=== PATIENT | female | born 1970 | race Hispanic/Latino ===

== ENCOUNTER 2023-03-20 06:33 | Observation (INO) | payer OTHER ==
--- OUTSIDE RECORDS SUMMARY | 2023-03-20 06:38 | XMS REPORT | Continuity of Care Document ---
:1970 Author Organization [facility] t Address [address] [place] [address] Care Team Providers Name Role Phone Johnson Jozef Arias Attending Clinician Unavailable FREDERICK GARCIA Attending Clinician Unavailable Vishal Lloyd Attending Clinician Unavailable Beverley Tafoya Attending Clinician Unavailable Abbe Elaine Attending Clinician Unavailable Physician, No Primary or Family Admitting Clinician Unavaila ble Payers Payer Name Policy Type Policy Number Effective Date Expiration Date S ource Problems This patient has no known problems. Allergies, Adverse Reactions, Alerts Allergy Allergy Status Severity Reaction(s) Onset Inactive Treating Comm ents Source Name Type Date Date Clinician No Known DA Active U [facility] 4- [place] [facility] 00:00: [facility] 00 are Rousseau No Known DA Active U 2020-05 [facility] 07-02 [facility] 00:00: [address] No Known DA Active U [facility] - [facility] [facility] 00:00: [address] No Known DA Active U [facility] 3-28 [facility] 00:00: [address] Medications This patient has no known medications. Procedures Procedure Date / Time Performed Performing Clinician [facility] stacy [id number] 2019-09-13 00:00:[address] [facility] [id number] 2019-09-13 00:00:[address] [facility] [id number] 2019-09-13 00:00:[address] [facility] [id number] 2019-09-13 00:00:00 HEAPA.01 [facility] Encounters Start End Encounter Admission Attending Care Care Encounter Source Date/Time Date/Time Type Type Clinicians Facility Department ID 2022-08-26 Emergency HFD HFD [id number] TIFFANY - 13:41:02 [facility] 2021-11-13 Inpatient Ornelas, [facility] [id number] [facility] 23:46:00 Jozef [id number] [facility] 2021-11-13 [facility]nel[facility] [id number] [facility] 23:01:00 Jozef 99 [facility] 2020-04-05 [facility] [id number] [facility] 16:16:00 82 [facility] 2020-04-01 [facility] [id number] [facility] 01:16:00 92 [facility] 2019-09-19 [facility] [id number] [facility] 14:29:00 05 [facility] 2019-09-09 [facility] [id number] [facility] 13:30:00 17 [facility] 2022-08-26 2022-08-26 Emergency E RADHA, [facility] [address] 13:01:00 17:48:00 MURALIELECARIANA l [facility] 2022-08-16 2022-08-16 Emergency EM Vishal Lloyd [facility] E[facility]3 [id number] [facility] 12:31:00 14:01:00 00 [facility] are Rousseau 2022-05-14 2022-05-14 Emergency EM Lottie [facility] [id number] [facility] 19:16:00 21:47:00 , Beverley [address] [facility] 2021-11-13 2021-11-14 Emergency EM Johnson, [facility] ER [id number] [facility] 23:44:00 04:32:00 Jozef 57 [facility] 2021-05-01 2021-05-01 Emergency EM Chele, [facility] ER [id number] [facility] 19:59:00 21:10:00 Mcadams 76 Corp[facility] Results Test Description Test Time Test Comments Results Result Comments Source UA MICROSCOPIC 2022-08-16 17:46:00 Test Item Value Reference Range Interpretation Comme nts UA WBC (test code = WBCU) 3-5 /HPF 0-3 A UA RBC (test code = RBCU) 0-3 /HPF 0-3 UA BACTERIA (test code = BACU) 1+ /HPF NONE SEEN A UA SQUAMOUS CELLS (test code = SQU) RARE /HPF NONE-FEW UA MUCUS (test code = MUCU) RARE /LPF NONE-FEW UA AMORPHOUS SEDIMENT (test code = AMORU) 1+ /HPF NONE SEEN URINALYSIS DIPSTICK [id number] 17:46:00 Test Item Value Reference Range Interpretation Comments UA COLOR (test code Yellow YELLOW = COLU) UA APPEARANCE (test Clear CLEAR code = APPU) UA GLUCOSE DIPSTICK NEGATIVE MG/AL NEGATIVE (test code = DGLUU) UA BILIRUBIN 1+ NEGATIVE A DIPSTICK (test code = BILU) UA KETONE DIPSTICK Trace MG/DL NEGATIVE (test code = KETU) UA SPECIFIC GRAVITY >=1.030 1.000-1.030 (test code = SGU) UA BLOOD DIPSTICK Trace-intact NEGATIVE (test code = SHERIN) UA PH DIPSTICK (test 5.5 4.5-8.5 code = BUSHRA) UA PROTEIN DIPSTICK TRACE NEGATIVE A (test code = PROU) UA UROBILINOGEN 0.2 EU/dL See_Comment [Automated DIPSTICK (test code message] The system = URO) which generated this result transmitted reference range : <=1.0. The reference range was not used to interpret this result as normal/abnormal . UA NITRITE DIPSTICK NEGATIVE NEGATIVE (test code = ZARI) UA LEUKOCYTE NEGATIVE NEGATIVE ESTERASE DIPSTICK (test code = LEUU) UA MICROSCOPIC YES NEEDED? (test code = UAMICRO) - XR CHEST 2 [id number] 13:28:00 [facility] : 1970 Sex: FPatient Name: YOSSI QUIROZ Unit No: [id number] EXAMS: CPT: [id number] XR CHEST 2 V 87312 CHEST 2 VIEWS. HISTORY: chest pain COMPARISON: none FINDINGS: The lungs are well aerated and clear. Thecardiomediastinal silhouette is normal. No pleural effusion is seen. Bony thorax is unremarkable. IMPRESSION: No acute abnormality is detected. Electronically Signed by Osvaldo Alexander MD on 3at 1328 Reported and signed by: Osvaldo Alexander MD CC: Vishal Lloyd MD Technologist: MARGOTH HUNTLEY [facility] Dt/Tm: 08/16/2022 (1328) by:[email or web address] Orig Print D/T: S: 08/16/2022 (2238) BATCH NO: N/A Name: YOSSI QUIROZ [facility] [place]: [place] [id number] [address] : 12/1970 Age: 51 Sex: [place] [address] Loc: NANCY Exam Date: 08/16/2022 Status: REG ER PH: [phone] FAX: PAGE 1 Signed ReportBNP [id number] 13:05:00 Test Item Value Reference Range Interpretation Comments BNP RAPID (test code = BNPRAP) 185 pg/mL 0.0-100.0 H HCG [id number] 13:03:00 Test Item Value Reference Range Interpretation Comments HCG POC (test NEGATIVE IU/L code = HCGPOC) Re sults of 5.0-25.0 IU/L a re indeterminate a nd do not ruleout pregnan cy. Because HCG karen ues double approxim ately every48 hours i n a normal pregnanc y, patients with l ow levels ofHCG should be resampled and r etested after 48 hours toconfirm . COMPREHENSIVE METABOLIC [id number] 13:03:00 Test Item Value Reference Range Interpretation Comments SODIUM POC (test 139 mmol/L 138-146 N code = NAP) POTASSIUM POC (test 4.2 mmol/L 3.5-4.9 N code = KP) CHLORIDE POC (test 109 mmol/L 98-109 N code = CLP) CO2 POC (test code = 26 mmol/L 24-29 N CO2P) GLUCOSE POC (test 101 MG/DL 74-106 N code = GLUP) BUN POC (test code = 12 mg/dL 8-26 N BUNP) CREATININE POC (test 1.0 mg/dL 0.6-1.3 N code = CREATP) GLOMERULAR 69 >60 The Glomerular FILTRATION RATE POC Filtrati on Rate is a (test code = GFRP) calculate d parameterbased on serum Creatinine, pat ient age and sex. GFR va luesless than 60 mL/min/ 1.73 square meters a re indicative ofCh ronic Kidney Disease. Values less than 15 mL/min/1.73squa re meters indicate Kidney failure. The calculation for GFR is based on the CK D-EPI (2020) calculat ion. This formulais race indifferent and is the recommended for daniela for GFRby the Natio nal Kidney Foundati on for Adults.The GFR will not calculate if th e sex is unknown or if thepatient's ag e is <18 years. TOTAL PROTEIN (test 7.6 g/dL 6.4-8.1 N code = PROT) ALBUMIN (test code = 3.4 g/dL 3.3-5.5 N ALB) CALCIUM (test code = 9.3 mg/dL 8.8-10.5 N CA) BILIRUBIN TOTAL 0.7 mg/dL 0.2-1.6 N (test code = BILT) SGOT/AST (test code 30 IU/L 11-38 N = AST) SGPT/ALT (test code 26 IU/L 10-47 N = ALT) ALKALINE PHOSPHATASE 119 IU/L 42-141 N (test code = ALKP) TROPONIN I [id number] 13:02:00 Test Item Value Reference Range Interpretation Comments TROPONIN I RAPID 0.01 ng/mL 0.00-0.08 N ISTAT TROP ONIN I (test code = CRITERIA0.00-0. 08 ng/mL - TROPIRAP) Negative>0.08 n g/mL - Positive The us e of serial sampling and te sting protocol is are commended practice.An sneha vated troponin level alone is often not suffi cient fordiagnosis of myocardial infarction. Matthew kellogg results obtaine d by different assay s may vary.Evaluation of the extent of myoca rdial damage based on increase of troponin would be valid only if similar methodology is used. CBC W/AUTO [id number] 12:51:00 Test Item Value Reference Range Interpretation Comments WHITE BLOOD CELL 7.8 x10 3/u 4.8-10.8 N (test code = WBC) RED BLOOD CELL (test 4.27 x10 6/uL 4.20-5.40 N code = RBC) HEMOGLOBIN (test code 12.1 g/dL 12.0-16.0 N = HGB) HEMATOCRIT (test code 38.5 % 34.0-47.0 N = HCT) MEAN CELL VOLUME 90 fL 80-99 N (test code = MCV) MEAN CELL HGB (test 28.3 pg 27.0-31.0 N code = MCH) MEAN CELL HGB 31.4 g/dL 33.0-37.0 L CONCENTRATION (test code = MCHC) RED CELL DISTRIBUTION 13.7 % 11.5-14.5 N WIDTH (test code = RDW) PLATELET COUNT (test 337 x10 3/uL 130-400 N code = PLT) MEAN PLATELET VOLUME 9.0 fL 9.4-12.4 L (test code = MPV) NEUTROPHIL % (test 48.8 % 37.0-80.0 N code = NT%) LYMPHOCYTE % (test 39.3 % 10.0-50.0 N code = LY%) MIXED % (test code = 11.9 % 0.0-11.0 H The Mix ed Cell MX%) percent and Mix ed Cell absolute numberinclude monocytes, eosinophils and basophils. NEUTROPHIL # (test 3.8 x10 3/uL 2.0-6.9 N code = NT#) LYMPHOCYTE # (test 3.1 x10 3/uL 0.9-4.1 N code = LY#) MIXED # (test code = 0.9 10e3/mm3 0.2-1.1 N MX#) - XR CHEST 1 [id number] 20:26:00 [facility] CENTERName: YOSSI HODGES : 1970 Sex: F Patient Name: YOSSI HODGES Unit No: [id number] EXAMS: CPT CODE: [id number] XR CHEST 1 V 66522 Reason: Cough Dictation location: H37. CHEST, FRONTAL VIEW HISTORY: Cough COMPARISON: Chest x-ray 04/05/20. FINDINGS: The lungs are clear without consolidation. No pleural effusion or pneumothorax. The heart size is normal. The bones are unremarkable. IMPRESSION: No evidence of acute cardiopulmonary disease. at 2026 Reported and signedby: Grady Ruiz MD CC: Beverley Tafoya MD Technologist: VAUGHN Collier Trscrpt Dt/ (2025)[email or web address].[email or web address] Orig Print D/T: S: 05/14/2022 (2028) [place] FSED NAME: YOSSI HODGES [address] PHYS: [place] [address] : 1970 AGE: 51 SEX: F LOC: D.NER PHONE #: [phone] EXAM DATE: 05/14/2022 STATUS: REG ER FAX #: RAD NO: DC Dt: PAGE 1 Signed Report COMPREHENSIVE METABOLIC [id number] 20:24:00 Test Item Value Reference Range Interpretation Comments SODIUM (test code = 138 MMOL/L 133-145 N NA) POTASSIUM (test code 3.6 MMOL/L 3.6-5.2 N = K) CHLORIDE (test code 102 MMOL/L 100-108 N = CL) CARBON DIOXIDE (test 28 MMOL/L 22-32 N code = CO2) GLUCOSE (test code = 91 MG/DL 65-99 N Results of this assay GLU) method may be f alsely depressed orele vated if patient is t aking sulfasalazine. BLOOD UREA NITROGEN 16 MG/DL 6-20 N (test code = BUN) GLOMERULAR 81 58-135 N The Glomerular FILTRATION RATE Filtration R ate is a (test code = GFR) calculated parameterbased on serum Creatinin e, patient age and sex. GFR valuesless than 60 mL/min/1.73 squ are meters are rylee cative ofChronic Kidne y Disease. Values less than 15 mL/min/1.73squa re meters indicate Kidney failure. The calculation for GFR is based on the CK D-EPI (2020) calculat ion. This formulais race indifferent and is the recommended for daniela for GFRby the N ational Kidney Foundati on for Adults.The GFR will not calculate i f the sex is unknown or if thepatient's ag e is <18 years. CREATININE (test 0.88 MG/DL 0.60-1.00 N code = CREAT) TOTAL PROTEIN (test 7.6 G/DL 6.4-8.2 N code = PROT) ALBUMIN (test code = 3.5 G/DL 3.4-5.0 N ALB) GLOBULIN (test code 4.1 G/DL 1.5-3.8 H = GLOB) ALBUMIN/GLOBULIN 0.9 1.1-2.2 L RATIO (test code = A/G) CALCIUM (test code = 9.2 MG/DL 8.7-10.5 N CA) BILIRUBIN TOTAL 0.3 MG/DL 0.0-1.0 N (test code = BILT) SGOT/AST (test code 38 Units/L 15-37 H Results of this assay = AST) method may be f alsely depressed orele vated if patient is t aking sulfasalazine. SGPT/ALT (test code 50 Units/L 30-65 N Results of this assay = ALT) method may be f alsely depressed orele vated if patient is t aking sulfasalazine. ALKALINE PHOSPHATASE 137 Units/L 50-136 H TOTAL (test code = ALKP) NT PRO-BRAIN NATRIURETIC [id number] 20:24:00 Test Item Value Reference Range Interpretation Comments NT PRO-BRAIN 610 PG/ML 0-125 H Results of this assay NATRIURETIC PEPTI (test meth od may be falsely code = PROBNP) depressed ore levated if patient is t aking high doses of B iotin. TROP-I HIGH [id number] 20:24:00 Test Item Value Reference Range Interpretation Comments TROP-I HIGH 38 ng/L < 51 Results above 51 for SENSITIVITY (test females an d 76 for males code = TROPIHS) are consiste nt with IFCC Committee recom mendations to use the 99th percentile of a normal population as a reference decision-limit. - The use of serial sampl ing and testing protoco l is a recommended pra ctive.- An elevated high sensitiveity tr oponin level alone is often not sufficient for diagnosis of myocardial infarction.- In order to distinguish acu te elevations of h igh sensitivity tro ponin from other clinical conditions, the Fourth [place] Defin ition of Myocardial Infa rction stresses clinic al assessment and demonstration o f a rise and/or fall in serial troponin result s above the upper refer ence limit.Results o f this assay method ma y be falsely depress ed orelevated if p atient is taking high dos es of Biotin. - CT HEAD/BRAIN W/O [id number] 20:24:00 [facility] : 1970 Sex: F Patient Name: YOSSI HODGES Unit No: [id number] EXAMS: CPT CODE: [id number] CT HEAD/BRAIN W/O CONT 26626Dpoqqg: Blurred vision Dictation location: H37. CT HEAD WITHOUT CONTRAST. HISTORY: Blurred vision COMPARISON: No comparison is available. TECHNIQUE: Axial CT images of the head were obtained with coronal and/or sagittal reformatted views. Automated exposure control, iterative reconstruction technique,and/or adjustment of mA and/or kV according to patient's size was utilized for radiation dose reduction. IV CONTRAST: None. FINDINGS: Left temporal craniotomy with aneurysm clipping in the region of the left MCA. Mild amount of periventricular and deep white matter hypodensities are seen, these are most commonly associated with chronic, microvascular ischemic changes. No other intracranial abnormalities such as hemorrhage, mass, mass effect, hydrocephalus, midline shift, extra-axial fluid collection or secondary signs of an acute infarct are noted. The calvarium and skull base are intact. The paran chaya sinus and mastoid air cells are clear. IMPRESSION: No evidence of acute intracranial abnormality. Left MCA aneurysm clipping. Mild chronic microvascular ischemic changes. Electronically Signedby Grady Ruiz MD on 05/14/2022 at 2023 Reported and signed by: Grady Ruiz MD CC: Beverley Tafoya MD Technologist: Dagoberto Fox, CT Trscrpt Dt/ (2023)[email or web address] Orig Print D/T: S: 05/14/2022 (2027) CTDI: DLP: [place] FSED NAME: YOSSI HODGES [id number] PHYS: [place] [address] : 1970 AGE: 51 SEX: F LOC: D.NER PHONE #: [phone] EXAM DATE: 05/14/2022 STATUS: PRE ER FAX #:RAD NO: DC Dt: PAGE 1 Signed ReportUA RFLX MICROSOPIC 2022-05-14 20:23:00 Test Item Value Reference Range Interpretation Comments UA COLOR (test code = COLU) YELLOW YELLOW UA APPEARANCE (test code = HAZY CLEAR APPU) UA GLUCOSE DIPSTICK (test NEGATIVE mg/dL NEGATIVE code = DGLUU) UA BILIRUBIN DIPSTICK (test NEGATIVE NEGATIVE code = BILU) UA KETONE DIPSTICK (test code NEGATIVE mg/dL NEGATIVE = KETU) UA SPECIFIC GRAVITY (test 1.020 1.001-1.035 N code = SGU) UA BLOOD DIPSTICK (test code 1+ NEGATIVE A = SHERIN) UA PH DIPSTICK (test code = 6.0 5.5-7.0 N BUSHRA) UA PROTEIN DIPSTICK (test NEGATIVE mg/dL NEGATIVE code = PROU) UA UROBILINOGEN DIPSTICK NORMAL mg/dL NORMAL (test code = URO) UA NITRITE DIPSTICK (test NEGATIVE NEGATIVE code = ZARI) UA LEUKOCYTE ESTERASE 500 NEGATIVE A DIPSTICK (test code = LEUU) UA COMMENT (test code = COMU) VOLUME 10-12 ML URINE SPECIMEN DESCRIPTION Clean Catch (test code = UASPEC) UA [id number] 20:23:00 Test Item Value Reference Range Interpretation Comments UA WBC (test code = WBCU) 10 - 20 #/hpf <10 A UA RBC (test code = RBCU) 5-10 #/hpf NONE SEEN A UA SQUAMOUS CELLS (test code = 0 - 20 #/lpf <100 SQU) UA CULTURE NEEDED? (test code = Criteria met UACULT) UA BACTERIA (test code = BACU) 2+ #/hpf NONE SEEN CBC W/AUTO [id number] 20:11:00 Test Item Value Reference Range Interpretation Comments WHITE BLOOD CELL (test code = 6.56 x10 3/uL 4.80-10.80 N WBC) RED BLOOD CELL (test code = 4.26 x10 6/uL 4.2-5.4 N RBC) HEMOGLOBIN (test code = HGB) 12.4 G/DL 12.0-16.0 N HEMATOCRIT (test code = HCT) 38.2 % 37-47 N MEAN CELL VOLUME (test code = 89.7 FL 81-99 N MCV) MEAN CELL HGB (test code = MCH) 29.1 PG 27-31 N MEAN CELL HGB CONCENTRATION 32.5 G/DL 33-37 L (test code = MCHC) RED CELL DISTRIBUTION WIDTH 13.0 % 11.5-14.5 N (test code = RDW) PLATELET COUNT (test code = 402 x10 3/uL 150-450 N PLT) MEAN PLATELET VOLUME (test code 9.5 FL 7.4-10.4 N = MPV) NEUTROPHIL % (test code = NT%) 44.8 % 42-86 N LYMPHOCYTE % (test code = LY%) 41.2 % 24-44 N MONOCYTE % (test code = MO%) 7.8 % 0.0-4.0 H EOSINOPHIL % (test code = EO%) 5.9 % 0.0-2.7 H BASOPHIL % (test code = BA%) 0.3 % 0.0-0.5 N NEUTROPHIL # (test code = NT#) 2.94 x10 3/uL 1.8-7.7 N LYMPHOCYTE # (test code = LY#) 2.70 x10 3/uL 1.0-4.8 N MONOCYTE # (test code = MO#) 0.51 x10 3/uL 0.0-0.8 N EOSINOPHIL # (test code = EO#) 0.39 x10 3/uL 0.0-0.5 N BASOPHIL # (test code = BA#) 0.02 x10 3/uL 0.0-0.2 N COVID 19 INHOUSE [id number] 00:11:00 Test Item Value Reference Range Interpretation Comments COVID 19 POSITIVE Negative A Results called to and read back INHOUSE AG by JAMES BALDERRAMA R N; 0011, 11/14/21, (test code = MatthewsDawn monroy Ma." The Sherry [id number]) SARS Antigen FI A does not differentiate b etweenSARS-CoV and SARS-CoV-2 " Th e Sherry SARS Antigen LESLIE emp loys immunofluoresce ncetechnology in a sandwich design that is used with Sherry todetect nucleocapsid protein from SA RS-CoV and SARS-CoV-2.This test allows for the detection o f SARS-CoV yjrKTBL-XmD-0. The test detects, but does not differentiate,b etween the two viruses. " Resu lts are for the identification of GAMJ-HnP-6nduqh ocapsid protein antigen. Antige n is generallydetect able in upper respiratory spe cimens during the acutephase of i nfection. Positive results indicat e the presenceof viral antigens, but clinical correlation wit h patienthistory and other diagn ostic information is necessary to determine infection statu s. Positive results do not rule outbacterial infection or co -infection with other viruses. Theagent detected may not be the definite cause of disease. " Nega tive results should be treat ed as presumptive " This test has not been FDA cleared or appr natasha; the testhas been authorized by FDA under an Emergency UseAu thorization (EUA) for use by labo ratories certified underthe CLIA t hat meet the requirements to perform moderate,high o r waived complexity test s. This test is authorized foru se at the Point of Care (POC), i.e ., in patient caresettings op erating under a CLIA Certificat e of Waiver,Certific ate of Compliance, or Certificate of Accreditation Use [employer] test: [id number] 18:54:00 Test Item Value Reference Range Interpretation Comments TROPONIN-I (test < 0.04 NG/ML 0.00-0.06 N - The use of serial code = TROPI) sampling and t esting protocol is a recommended pra ctice.- An elevated tro ponin level alone is often not sufficient for diagnosis of myocardial infarction.Resu lts of this assay meth od may be falsely depress ed orelevated if p atient is taking high dos es of Biotin. RECOLLECT 2ND TROP- XR CHEST 1 [id number] 17:40:00 [facility] CENTERName: YOSSI HODGES : 1970 Sex: F Patient Name: YOSSI HODGES Unit No: [id number] EXAMS: CPT CODE: [id number] XR CHEST 1 V 34553 Reason:chest pain PROCEDURE INFORMATION: Exam: XR Chest, 1 View Exam date and time: 04/05/2020 5:38 PM Age: 49 years old Clinical indication: Chest pain TECHNIQUE: Imaging protocol: XR of the chest Views: 1 view. COMPARISON: CR XR CHEST 1 V 04/01/2020 1:47 AM FINDINGS: Lungs: Clear lungs. Pleural space: No pn eumothorax. No sizeable effusion. Heart/Mediastinum: Cardiomediastinal silhouette is within normal limits. Bones/joints: No acute displaced fracture or dislocation. IMPRESSION: No acute cardiopulmonaryprocess. INTERNAL CODING PURPOSES ONLY RESULT CODE: CVR at 1740 Reported and signed by: Catalino Stewart MD CC: Farida Nogueira DO Technologist: Aminah CURRAN Trscrpt Dt/ (1739)[email or web address].[email or web address] Orig Print D/T: S: 04/05/2020 (174) [facility] NAME: YOSSI HODGES [id number] [facility] PHYS: [place] [address] : 1970 AGE: 49 SEX: F LOC: DAMIEN PHONE #: [phone] EXAM DATE: 04/05/2020 STATUS: REG ER FAX #: RAD NO: DC Dt: PAGE 1 Signed ReportBASIC METABOLIC [id number] 17:19:00 Test Item Value Reference Range Interpretation Comments SODIUM (test code = 138 MMOL/L 133-145 N NA) POTASSIUM (test code = 3.3 MMOL/L 3.6-5.2 L K) CHLORIDE (test code = 102 MMOL/L 100-108 N CL) CARBON DIOXIDE (test 27 MMOL/L 22-32 N code = CO2) GLUCOSE (test code = 180 MG/DL 65-99 H Results of this assay GLU) method may be f alsely depressed orele vated if patient is t aking sulfasalazine. BLOOD UREA NITROGEN 9 MG/DL 6-20 N (test code = BUN) GLOMERULAR FILTRATION 49 58-135 L Report ing units: RATE (test code = GFR) mL/mi n/1.73m\\S\\2 (Modified MDRD Formula) CREATININE (test code 1.18 MG/DL 0.60-1.00 H = CREAT) CALCIUM (test code = 9.5 MG/DL 8.7-10.5 N CA) RECOLLECTNT PRO-BRAIN NATRIURETIC [id number] 17:19:00 Test Item Value Reference Range Interpretation Comments NT PRO-BRAIN 60 PG/ML 0-125 N Results of this assay NATRIURETIC PEPTI (test meth od may be falsely code = PROBNP) depressed ore levated if patient is t aking high doses of B iotin. [id number] 17:19:00 Test Item Value Reference Range Interpretation Comments TROPONIN-I (test < 0.04 NG/ML 0.00-0.06 N - The use of serial code = TROPI) sampling and t esting protocol is a recommended pra ctice.- An elevated tro ponin level alone is often not sufficient for diagnosis of myocardial infarction.Resu lts of this assay meth od may be falsely depress ed orelevated if p atient is taking high dos es of Biotin. RECOLLECTD-DIMER [id number] 16:54:00 Test Item Value Reference Range Interpretation Comments D-DIMER QUANT (test 208 D-DU 0-400 N Alere Triage values code = DDIMER) presented in units of mass (ng/mL)of D-dim er, also known as D-dime r units (D-DU).* Cut-of f: 400 ng/mL Results o f the D-Dimer test sh ould always be interpretedi n conjunction wit h the patient's medic al history, clinicalpresent ation, and other findings. Clinical diagnosis shoul dnot be based on the re sults of D-Dimer alone.P atients with a distal D VT may have a normal D-Dime r result. CBC W/AUTO [id number] 16:41:00 Test Item Value Reference Range Interpretation Comments WHITE BLOOD CELL (test code = 6.94 x10 3/uL 4.80-10.80 N WBC) RED BLOOD CELL (test code = 3.78 x10 6/uL 4.2-5.4 L RBC) HEMOGLOBIN (test code = HGB) 11.4 G/DL 12.0-16.0 L HEMATOCRIT (test code = HCT) 33.2 % 37-47 L MEAN CELL VOLUME (test code = 87.8 FL 81-99 N MCV) MEAN CELL HGB (test code = MCH) 30.2 PG 27-31 N MEAN CELL HGB CONCENTRATION 34.3 G/DL 33-37 N (test code = MCHC) RED CELL DISTRIBUTION WIDTH 13.9 % 11.5-14.5 N (test code = RDW) PLATELET COUNT (test code = 311 x10 3/uL 150-450 N PLT) MEAN PLATELET VOLUME (test code 9.8 FL 7.4-10.4 N = MPV) NEUTROPHIL % (test code = NT%) 38.1 % 42-86 L LYMPHOCYTE % (test code = LY%) 45.1 % 24-44 H MONOCYTE % (test code = MO%) 12.2 % 0.0-4.0 H EOSINOPHIL % (test code = EO%) 4.2 % 0.0-2.7 H BASOPHIL % (test code = BA%) 0.4 % 0.0-0.5 N NEUTROPHIL # (test code = NT#) 2.64 x10 3/uL 1.8-7.7 N LYMPHOCYTE # (test code = LY#) 3.13 x10 3/uL 1.0-4.8 N MONOCYTE # (test code = MO#) 0.85 x10 3/uL 0.0-0.8 H EOSINOPHIL # (test code = EO#) 0.29 x10 3/uL 0.0-0.5 N BASOPHIL # (test code = BA#) 0.03 x10 3/uL 0.0-0.2 N UA RFLX MICROSCOPIC [id number] 01:58:00 Test Item Value Reference Range Interpretation Comments UA COLOR (test code = YELLOW YELLOW COLU) UA APPEARANCE (test code CLEAR CLEAR = APPU) UA GLUCOSE DIPSTICK (test NEGATIVE mg/dL NEGATIVE code = DGLUU) UA BILIRUBIN DIPSTICK NEGATIVE NEGATIVE (test code = BILU) UA KETONE DIPSTICK (test NEGATIVE mg/dL NEGATIVE code = KETU) UA SPECIFIC GRAVITY (test 1.015 1.001-1.035 N code = SGU) UA BLOOD DIPSTICK (test 1+ NEGATIVE A code = SHERIN) UA PH DIPSTICK (test code 7.0 5.5-7.0 N = BUSHRA) UA PROTEIN DIPSTICK (test NEGATIVE mg/dL NEGATIVE code = PROU) UA UROBILINOGEN DIPSTICK NORMAL mg/dL NORMAL (test code = URO) UA NITRITE DIPSTICK (test NEGATIVE NEGATIVE code = ZARI) UA LEUKOCYTE ESTERASE TRACE NEGATIVE A DIPSTICK (test code = LEUU) UA COMMENT (test code = LESS THAN 10 ML VOL COMU) URINE SPECIMEN Clean Catch DESCRIPTION (test code = UASPEC) UA WBC (test code = WBCU) < 10 #/hpf <10 UA SQUAMOUS CELLS (test 0 - 20 #/lpf <100 code = SQU) UA CULTURE NEEDED? (test Criteria not met code = UACULT) Indication for culture: Suprapubic PainURINE SOURCE: Clean CatchUA MICROSCOPIC 2020-04-01 01:58:00 Test Item Value Reference Range Interpretation Comments UA RBC (test code = RBCU) 0-2 #/hpf NONE SEEN A UA BACTERIA (test code = BACU) RARE #/hpf NONE SEEN Indication for culture: Suprapubic PainURINE SOURCE: Clean Catch- XR CHEST 1 V 2020-04-01 01:58:00 [facility] TAE FAJARDO [facility] : 1970 Sex: F Patient Name: YOSSI HODGES Unit No: [id number] EXAMS: CPT CODE: [id number] XR CHEST 1 V 15413 Reason: COUGH PROCEDURE INFORMATION: Exam: XR Chest, 1 View Exam date and time: 04/01/2020 1:49 AM Age: 49 years old Clinical indication: Cough TECHNIQUE: Imaging protocol: XR of the chest Views: 1 view. COMPARISON: CR XR CHEST 1 V 09/19/2019 3:33 PM FINDINGS: Lungs: Unremarkable. No consolidation. Pleural spac e: Unremarkable. No pleural effusion. No pneumothorax. Heart/Mediastinum: Unremarkable. No cardiomegaly. Bones/joints: Unremarkable. IMPRESSION: No acute findings. INTERNAL CODING PURPOSES ONLY RESULT CODE: CVR at 0158 Reported and signed by: Mookie Lazo MD CC: Cindy James MD Technologist: Macy Blake CT Trscrpt Dt/ (0158)VRMEAGAN.VR Orig Print D/T: S: 04/01/2020 (0158) [facility] NAME: YOSSI HODGES [id number] [facility] PHYS: [place] [address] : 1970 AGE: 49 SEX: F LOC: D.ANDERSON PHONE #: [phone] EXAM DATE: 020 STATUS: PRE ER FAX #: RAD NO: DC Dt: PAGE 1 Signed ReportUA RFLX MICROSCOPIC [id number] 01:52:00 Test Item Value Reference Range Interpretation Comments UA COLOR (test code = YELLOW YELLOW COLU) UA APPEARANCE (test code CLEAR CLEAR = APPU) UA GLUCOSE DIPSTICK (test NEGATIVE mg/dL NEGATIVE code = DGLUU) UA BILIRUBIN DIPSTICK NEGATIVE NEGATIVE (test code = BILU) UA KETONE DIPSTICK (test NEGATIVE mg/dL NEGATIVE code = KETU) UA SPECIFIC GRAVITY (test 1.015 1.001-1.035 N code = SGU) UA BLOOD DIPSTICK (test 1+ NEGATIVE A code = SHERIN) UA PH DIPSTICK (test code 7.0 5.5-7.0 N = BUSHRA) UA PROTEIN DIPSTICK (test NEGATIVE mg/dL NEGATIVE code = PROU) UA UROBILINOGEN DIPSTICK NORMAL mg/dL NORMAL (test code = URO) UA NITRITE DIPSTICK (test NEGATIVE NEGATIVE code = ZARI) UA LEUKOCYTE ESTERASE TRACE NEGATIVE A DIPSTICK (test code = LEUU) UA COMMENT (test code = LESS THAN 10 ML VOL COMU) URINE SPECIMEN Clean Catch DESCRIPTION (test code = UASPEC) UA WBC (test code = WBCU) #/hpf <10 UA SQUAMOUS CELLS (test #/lpf <100 code = SQU) UA CULTURE NEEDED? (test code = UACULT) Indication for culture: Suprapubic PainURINE SOURCE: Clean CatchUA MICROSCOPIC 2020-04-01 01:52:00 Test Item Value Reference Range Interpretation Comments UA RBC (test code = RBCU) #/hpf NONE SEEN Indication for culture: Suprapubic PainURINE SOURCE: Clean CatchUA RFLX MICROSCOPIC [id number] 01:52:00 Test Item Value Reference Range Interpretation Comments UA COLOR (test code = YELLOW YELLOW COLU) UA APPEARANCE (test code CLEAR CLEAR = APPU) UA GLUCOSE DIPSTICK (test NEGATIVE mg/dL NEGATIVE code = DGLUU) UA BILIRUBIN DIPSTICK NEGATIVE NEGATIVE (test code = BILU) UA KETONE DIPSTICK (test NEGATIVE mg/dL NEGATIVE code = KETU) UA SPECIFIC GRAVITY (test 1.015 1.001-1.035 N code = SGU) UA BLOOD DIPSTICK (test 1+ NEGATIVE A code = SHERIN) UA PH DIPSTICK (test code 7.0 5.5-7.0 N = BUSHRA) UA PROTEIN DIPSTICK (test NEGATIVE mg/dL NEGATIVE code = PROU) UA UROBILINOGEN DIPSTICK NORMAL mg/dL NORMAL (test code = URO) UA NITRITE DIPSTICK (test NEGATIVE NEGATIVE code = ZARI) UA LEUKOCYTE ESTERASE TRACE NEGATIVE A DIPSTICK (test code = LEUU) UA COMMENT (test code = LESS THAN 10 ML VOL COMU) URINE SPECIMEN Clean Catch DESCRIPTION (test code = UASPEC) UA WBC (test code = WBCU) #/hpf <10 UA SQUAMOUS CELLS (test #/lpf <100 code = SQU) UA CULTURE NEEDED? (test code = UACULT) Indication for culture: Suprapubic PainURINE SOURCE: Clean CatchUA MICROSCOPIC 2020-04-01 01:52:00 Test Item Value Reference Range Interpretation Comments UA RBC (test code = RBCU) #/hpf NONE SEEN Indication for culture: Suprapubic PainURINE SOURCE: Clean CatchUA RFLX MICROSCOPIC [id number] 16:26:00 Test Item Value Reference Range Interpretation Comments UA COLOR (test code = COLU) YELLOW YELLOW UA APPEARANCE (test code = CLEAR CLEAR APPU) UA GLUCOSE DIPSTICK (test NEGATIVE mg/dL NEGATIVE code = DGLUU) UA BILIRUBIN DIPSTICK (test NEGATIVE NEGATIVE code = BILU) UA KETONE DIPSTICK (test NEGATIVE mg/dL NEGATIVE code = KETU) UA SPECIFIC GRAVITY (test 1.005 1.001-1.035 N code = SGU) UA BLOOD DIPSTICK (test code 1+ NEGATIVE A = SHERIN) UA PH DIPSTICK (test code = 7.0 5.5-7.0 N BUSHRA) UA PROTEIN DIPSTICK (test NEGATIVE mg/dL NEGATIVE code = PROU) UA UROBILINOGEN DIPSTICK NORMAL mg/dL NORMAL (test code = URO) UA NITRITE DIPSTICK (test NEGATIVE NEGATIVE code = ZARI) UA LEUKOCYTE ESTERASE TRACE NEGATIVE A DIPSTICK (test code = LEUU) UA COMMENT (test code = VOLUME 10-12 ML COMU) URINE SPECIMEN DESCRIPTION Clean Catch (test code = UASPEC) UA WBC (test code = WBCU) < 10 #/hpf <10 UA SQUAMOUS CELLS (test code 0 - 20 #/lpf <100 = SQU) UA CULTURE NEEDED? (test Criteria not met code = UACULT) Indication for culture: Sev. Sepsis-no other srcURINE SOURCE: Clean CatchUA [id number] 16:26:00 Test Item Value Reference Range Interpretation Comments UA RBC (test code = RBCU) 0-2 #/hpf NONE SEEN A UA BACTERIA (test code = BACU) FEW #/hpf NONE SEEN A Indication for culture: Sev. Sepsis-no other srcURINE SOURCE: Clean CatchUA RFLX MICROSCOPIC [id number] 16:18:00 Test Item Value Reference Range Interpretation Comments UA COLOR (test code = COLU) YELLOW YELLOW UA APPEARANCE (test code = CLEAR CLEAR APPU) UA GLUCOSE DIPSTICK (test NEGATIVE mg/dL NEGATIVE code = DGLUU) UA BILIRUBIN DIPSTICK (test NEGATIVE NEGATIVE code = BILU) UA KETONE DIPSTICK (test code NEGATIVE mg/dL NEGATIVE = KETU) UA SPECIFIC GRAVITY (test 1.005 1.001-1.035 N code = SGU) UA BLOOD DIPSTICK (test code 1+ NEGATIVE A = SHERIN) UA PH DIPSTICK (test code = 7.0 5.5-7.0 N BUSHRA) UA PROTEIN DIPSTICK (test NEGATIVE mg/dL NEGATIVE code = PROU) UA UROBILINOGEN DIPSTICK NORMAL mg/dL NORMAL (test code = URO) UA NITRITE DIPSTICK (test NEGATIVE NEGATIVE code = ZARI) UA LEUKOCYTE ESTERASE TRACE NEGATIVE A DIPSTICK (test code = LEUU) UA COMMENT (test code = COMU) VOLUME 10-12 ML URINE SPECIMEN DESCRIPTION Clean Catch (test code = UASPEC) UA WBC (test code = WBCU) #/hpf <10 UA SQUAMOUS CELLS (test code #/lpf <100 = SQU) UA CULTURE NEEDED? (test code = UACULT) Indication for culture: Sev. Sepsis-no other srcURINE SOURCE: Clean CatchUA [id number] 16:18:00 Test Item Value Reference Range Interpretation Comments UA RBC (test code = RBCU) #/hpf NONE SEEN Indication for culture: Sev. Sepsis-no other srcURINE SOURCE: Clean CatchUA RFLX MICROSCOPIC [id number] 16:18:00 Test Item Value Reference Range Interpretation Comments UA COLOR (test code = COLU) YELLOW YELLOW UA APPEARANCE (test code = CLEAR CLEAR APPU) UA GLUCOSE DIPSTICK (test NEGATIVE mg/dL NEGATIVE code = DGLUU) UA BILIRUBIN DIPSTICK (test NEGATIVE NEGATIVE code = BILU) UA KETONE DIPSTICK (test code NEGATIVE mg/dL NEGATIVE = KETU) UA SPECIFIC GRAVITY (test 1.005 1.001-1.035 N code = SGU) UA BLOOD DIPSTICK (test code 1+ NEGATIVE A = SHERIN) UA PH DIPSTICK (test code = 7.0 5.5-7.0 N BUSHRA) UA PROTEIN DIPSTICK (test NEGATIVE mg/dL NEGATIVE code = PROU) UA UROBILINOGEN DIPSTICK NORMAL mg/dL NORMAL (test code = URO) UA NITRITE DIPSTICK (test NEGATIVE NEGATIVE code = ZARI) UA LEUKOCYTE ESTERASE TRACE NEGATIVE A DIPSTICK (test code = LEUU) UA COMMENT (test code = COMU) VOLUME 10-12 ML URINE SPECIMEN DESCRIPTION Clean Catch (test code = UASPEC) UA WBC (test code = WBCU) #/hpf <10 UA SQUAMOUS CELLS (test code #/lpf <100 = SQU) UA CULTURE NEEDED? (test code = UACULT) Indication for culture: Sev. Sepsis-no other srcURINE SOURCE: Clean CatchUA [id number] 16:18:00 Test Item Value Reference Range Interpretation Comments UA RBC (test code = RBCU) #/hpf NONE SEEN Indication for culture: Sev. Sepsis-no other srcURINE SOURCE: Clean CatchC REACTIVE [id number] 15:56:00 Test Item Value Reference Range Interpretation Comments C REACTIVE PROTEIN (test code = 0.7 MG/DL < 0.9 CRP) - XR CHEST 1 [id number] 15:51:00 Patient Name: YOSSI HODGES Unit No: [id number] EXAMS: CPT CODE: [id number] XR CHEST 1 V [id number] Reason: sob FINDINGS: Single view of the chest shows normal heart size and pulmonary vasculature. The lungs are clear bilaterally. There is no focal infiltrate, pleural effusion or pneumothorax. IMPRESSION: No acute cardiopulmonary findings at 1551 Reported and signed by: Miguel Malagon MD CC: Alexis Cruz MD Technologist: Kerrie Thrasher CT Trscrpt Dt/ (1551)Raegan Orig Print D/T: S: 09/19/2019 (7377) [facility] NAME: YOSSI HODGES [id number] [facility] PHYS: SIVA - Anthony,[place] [address] : 1970 AGE: 48 SEX: F LOC: DAMIEN PHONE #: [phone] EXAM DATE: 09/19/2019 STATUS: REG ER FAX #: RAD NO: DC Dt: PAGE 1 Signed ReportLACTIC [id number] 15:50:00 Test Item Value Reference Range Interpretation Comments LACTIC ACID (test code = LACT) 1.3 MMOL/L 0.5-2.2 N COMPREHENSIVE METABOLIC [id number] 15:41:00 Test Item Value Reference Range Interpretation Comments SODIUM (test code = 135 MMOL/L 133-145 NA) POTASSIUM (test code = 3.8 MMOL/L 3.6-5.2 N K) CHLORIDE (test code = 97 MMOL/L 100-108 L CL) CARBON DIOXIDE (test 30 MMOL/L 22-32 N code = CO2) GLUCOSE (test code = 92 MG/DL 65-99 N Results of this GLU) assay method ma y be falsely depress ed orelevated if patient is taki ng sulfasalazine. BLOOD UREA NITROGEN 22 MG/DL 6-20 H (test code = BUN) GLOMERULAR FILTRATION 47 58-135 L Report ing units: RATE (test code = GFR) mL/mi n/1.73m\\S\\2 (Modified MDRD Formula) CREATININE (test code 1.23 MG/DL 0.60-1.00 H = CREAT) TOTAL PROTEIN (test 8.6 G/DL 6.4-8.2 H code = PROT) ALBUMIN (test code = 4.0 G/DL 3.4-5.0 N ALB) GLOBULIN (test code = 4.6 G/DL 1.5-3.8 H GLOB) ALBUMIN/GLOBULIN RATIO 0.9 1.1-2.2 L (test code = A/G) CALCIUM (test code = 9.3 MG/DL 8.7-10.5 N CA) BILIRUBIN TOTAL (test 0.7 MG/DL 0.0-1.0 N code = BILT) BILIRUBIN INDIRECT 0.5 MG/DL 0.0-0.7 N (test code = BILIND) SGOT/AST (test code = 21 Units/L 15-37 N Result s of this AST) assay method ma y be falsely depress ed orelevated if patient is taki ng sulfasalazine. SGPT/ALT (test code = 48 Units/L 30-65 N Result s of this ALT) assay method ma y be falsely depress ed orelevated if patient is taki ng sulfasalazine. ALKALINE PHOSPHATASE 102 Units/L 50-136 N TOTAL (test code = ALKP) HEPATIC FUNCTION [id number] 15:41:00 Test Item Value Reference Range Interpretation Comments BILIRUBIN DIRECT (test code = BILD) 0.2 MG/DL 0.0-0.3 N [id number] 15:41:00 Test Item Value Reference Range Interpretation Comments PHOSPHOROUS (test code = PHOS) 3.8 MG/DL 2.5-4.9 N NT PRO-BRAIN NATRIURETIC [id number] 15:41:00 Test Item Value Reference Range Interpretation Comments NT PRO-BRAIN 1210 PG/ML 0-125 H Results of this assay NATRIURETIC PEPTI method may be falsely (test code = PROBNP) depress ed orelevated if patient is t aking high doses of B iotin. [id number] 15:41:00 Test Item Value Reference Range Interpretation Comments TROPONIN-I (test < 0.04 NG/ML 0.00-0.06 N - The use of serial code = TROPI) sampling and t esting protocol is a recommended pra ctice.- An elevated tro ponin level alone is often not sufficient for diagnosis of myocardial infarction.Resu lts of this assay meth od may be falsely depress ed orelevated if p atient is taking high dos es of Biotin. PROTHROMBIN [id number] 15:40:00 Test Item Value Reference Range Interpretation Comments PROTHROMBIN TIME 11.7 SECONDS 9.9-13.2 N Referen ce Range PATIENT (test code = revised from PTP) 10.7-13.9 as of 06/23/17. INTERNATIONAL NORMAL 1.02 Recomme nded INR range RATIO (test code = (warfarin therapy): INR) 2.0 - 3.0INR (International Normalized Rati o) should beused w hen interpreting or al anticoaglulant therapy. For at rial fibrillation an d treatment orprevention of deep vein thrombosis . Patients with Palmaz-Su s tent *: 2.0 - 3.0 Pa tients with mechanical heart valve *: 2.5 - 3.5 Patients with flex-stent *: 3 .0 - 4.0(*) = inspector type's suggested range Is patient on anticoagulants? UnknownCBC W/AUTO [id number] 15:34:00 Test Item Value Reference Range Interpretation Comments WHITE BLOOD CELL (test 12.76 x10 3/uL 4.80-10.80 H Res ults called to code = WBC) and read back Aryan Lai RN NWED;1534, 09/19/19, D.LAB.KM1. RED BLOOD CELL (test 4.25 x10 6/uL 4.2-5.4 N code = RBC) HEMOGLOBIN (test code 12.8 G/DL 12.0-16.0 N = HGB) HEMATOCRIT (test code 39.4 % 37-47 N = HCT) MEAN CELL VOLUME (test 92.7 FL 81-99 N code = MCV) MEAN CELL HGB (test 30.1 PG 27-31 N code = MCH) MEAN CELL HGB 32.5 G/DL 33-37 L CONCENTRATION (test code = MCHC) RED CELL DISTRIBUTION 13.3 % 11.5-14.5 N WIDTH (test code = RDW) PLATELET COUNT (test 356 x10 3/uL 150-450 N code = PLT) MEAN PLATELET VOLUME 9.6 FL 7.4-10.4 N (test code = MPV) NEUTROPHIL % (test 80.4 % 42-86 N code = NT%) LYMPHOCYTE % (test 11.1 % 24-44 L code = LY%) MONOCYTE % (test code 7.1 % 0.0-4.0 H = MO%) EOSINOPHIL % (test 1.2 % 0.0-2.7 N code = EO%) BASOPHIL % (test code 0.2 % 0.0-0.5 N = BA%) NEUTROPHIL # (test 10.28 x10 3/uL 1.8-7.7 H code = NT#) LYMPHOCYTE # (test 1.41 x10 3/uL 1.0-4.8 N code = LY#) MONOCYTE # (test code 0.90 x10 3/uL 0.0-0.8 H = MO#) EOSINOPHIL # (test 0.15 x10 3/uL 0.0-0.5 N code = EO#) BASOPHIL # (test code 0.02 x10 3/uL 0.0-0.2 N = BA#) TROPONIN I [id number] 15:14:00 Test Item Value Reference Range Interpretation Comments TROPONIN I RAPID 0.01 NG/ML 0.00-0.08 N Performed b y certified (test code = complaint operator at [facility]) RH - The use of serial sampling and te sting protocol is a recommended pra ctice.- An elevated tro ponin level alone is often not sufficient for diagnosis of my ocardial infarction. ANTINUCLEAR ANTIBODIES [id number] 23:07:00 Test Item Value Reference Range Interpretation Comments BENOIT SCREEN (test code Negative () Nega tive <1:80 = ANASCR) Borderline 1:80 Positive >1:80Performed At: [facility] [address] [id number] jeffrey Kerns MD Ph:[phone] [facility] B VIR (SER1-6),[id number] 23:07:00 Test Item Value Reference Range Interpretation Comments AB [facility] B1 VIRUS Negative Neg:<1:8 (test code = TYMZ5SL) AB [facility] B2 VIRUS Negative Neg:<1:8 (test code = GYIK3KL) AB [facility] B3 VIRUS Negative Neg:<1:8 (test code = LHOP4XX) AB [facility] B4 VIRUS Negative Neg:<1:8 (test code = MHPO2RJ) AB [facility] B5 VIRUS Negative Neg:<1:8 (test code = HCCM6SF) AB [facility] B6 VIRUS Negative Neg:<1:8 Perfor med At: BN (test code = NDQA6UC) [facility] [id number] [place], [place] [id number] galina Guerrier MD Ph:[phone] ANTINUCLEAR ANTIBODIES [id number] 13:09:00 Test Item Value Reference Range Interpretation Comments BENOIT SCREEN (test code Negative () Negat cate <1:80 = ANASCR) Borderline 1:80 Positive >1:80Performed At: HD [facility] [address] [id number] Kerns MD Ph:[phone] [facility] B VIR (SER1-6),[id number] 13:09:00 Test Item Value Reference Range Interpretation Comments AB [facility] B1 VIRUS (test code = QDGX5DV) AB [facility] B2 VIRUS (test code = OTWD3RK) AB [facility] B3 VIRUS (test code = LHMX3BZ) AB [facility] B4 VIRUS (test code = RBPT4IR) AB [facility] B5 VIRUS (test code = PFZG6ZF) AB [facility] B6 VIRUS (test code = TELQ8JK) HIV 1 2 COMBO AG/AB [id number] 08:11:00 Test Item Value Reference Range Interpretation Comments HIV 1 2 COMBO AG/AB Non Reactive Non Reactive Performe d At: HD SCREEN (test code = [facility] [address] [address] [id number]) [place], [place] [id number] Kerns MD Ph:[phone] HIV 4th Generat ion Detects HIV-spe cific antibodies and HIV-p24 antigen. CBC W/AUTO [id number] 04:37:00 Test Item Value Reference Range Interpretation Comments WHITE BLOOD CELL (test code = 6.18 x10 3/uL 4.80-10.80 N WBC) RED BLOOD CELL (test code = 4.37 x10 6/uL 4.2-5.4 N RBC) HEMOGLOBIN (test code = HGB) 12.9 G/DL 12.0-16.0 N HEMATOCRIT (test code = HCT) 41.0 % 37-47 N MEAN CELL VOLUME (test code = 93.8 FL 81-99 N MCV) MEAN CELL HGB (test code = MCH) 29.5 PG 27-31 N MEAN CELL HGB CONCENTRATION 31.5 G/DL 33-37 L (test code = MCHC) RED CELL DISTRIBUTION WIDTH 13.0 % 11.5-14.5 N (test code = RDW) PLATELET COUNT (test code = 306 x10 3/uL 150-450 N PLT) MEAN PLATELET VOLUME (test code 9.4 FL 7.4-10.4 N = MPV) NEUTROPHIL % (test code = NT%) 39.2 % 42-86 L IMMATURE GRANULOCYTE % (test 0.2 % 0.0-2.0 N code = IG%) LYMPHOCYTE % (test code = LY%) 43.0 % 24-44 N MONOCYTE % (test code = MO%) 10.2 % 0.0-4.0 H EOSINOPHIL % (test code = EO%) 6.6 % 0.0-2.7 H BASOPHIL % (test code = BA%) 0.8 % 0.0-0.5 H NUCLEATED RBC % (test code = 0.0 % 0.0-0.0 N NRBC%) NEUTROPHIL # (test code = NT#) 2.42 x10 3/uL 1.8-7.7 N IMMATURE GRANULOCYTE # (test 0.01 x10 3/uL 0.00-0.03 N code = IG#) LYMPHOCYTE # (test code = LY#) 2.66 x10 3/uL 1.0-4.8 N MONOCYTE # (test code = MO#) 0.63 x10 3/uL 0.0-0.8 N EOSINOPHIL # (test code = EO#) 0.41 x10 3/uL 0.0-0.5 N BASOPHIL # (test code = BA#) 0.05 x10 3/uL 0.0-0.2 N NUCLEATED RBC # (test code = 0.0 X10 3/uL 0.0-0.2 N NRBC#) BASIC METABOLIC [id number] 04:33:00 Test Item Value Reference Range Interpretation Comments SODIUM (test code = 143 MMOL/L 133-145 N NA) POTASSIUM (test code = 4.2 MMOL/L 3.6-5.2 N K) CHLORIDE (test code = 107 MMOL/L 100-108 N CL) CARBON DIOXIDE (test 30 MMOL/L 22-32 N code = CO2) GLUCOSE (test code = 90 MG/DL 65-99 N Results of this assay GLU) method may be f alsely depressed orele vated if patient is t aking sulfasalazine. BLOOD UREA NITROGEN 26 MG/DL 6-20 H (test code = BUN) GLOMERULAR FILTRATION 64 58-135 N Report ing units: RATE (test code = GFR) mL/mi n/1.73m\\S\\2 (Modified MDRD Formula) CREATININE (test code 0.94 MG/DL 0.60-1.00 N = CREAT) CALCIUM (test code = 9.6 MG/DL 8.7-10.5 N CA) [id number] 04:33:00 Test Item Value Reference Range Interpretation Comments MAGNESIUM (test code = MAG) 2.1 MG/DL 1.8-2.4 N BASIC METABOLIC [id number] 06:15:00 Test Item Value Reference Range Interpretation Comments SODIUM (test code = 142 MMOL/L 133-145 N NA) POTASSIUM (test code = 4.1 MMOL/L 3.6-5.2 N K) CHLORIDE (test code = 106 MMOL/L 100-108 N CL) CARBON DIOXIDE (test 30 MMOL/L 22-32 N code = CO2) GLUCOSE (test code = 89 MG/DL 65-99 N Results of this assay GLU) method may be f alsely depressed orele vated if patient is t aking sulfasalazine. BLOOD UREA NITROGEN 25 MG/DL 6-20 H (test code = BUN) GLOMERULAR FILTRATION 65 58-135 N Report ing units: RATE (test code = GFR) mL/mi n/1.73m\\S\\2 (Modified MDRD Formula) CREATININE (test code 0.93 MG/DL 0.60-1.00 N = CREAT) CALCIUM (test code = 9.2 MG/DL 8.7-10.5 N CA) [id number] 06:15:00 Test Item Value Reference Range Interpretation Comments MAGNESIUM (test code = MAG) 1.8 MG/DL 1.8-2.4 N CBC W/AUTO [id number] 06:12:00 Test Item Value Reference Range Interpretation Comments WHITE BLOOD CELL (test code = 5.70 x10 3/uL 4.80-10.80 N WBC) RED BLOOD CELL (test code = 4.34 x10 6/uL 4.2-5.4 N RBC) HEMOGLOBIN (test code = HGB) 13.2 G/DL 12.0-16.0 N HEMATOCRIT (test code = HCT) 40.7 % 37-47 N MEAN CELL VOLUME (test code = 93.8 FL 81-99 N MCV) MEAN CELL HGB (test code = MCH) 30.4 PG 27-31 N MEAN CELL HGB CONCENTRATION 32.4 G/DL 33-37 L (test code = MCHC) RED CELL DISTRIBUTION WIDTH 13.0 % 11.5-14.5 N (test code = RDW) PLATELET COUNT (test code = 289 x10 3/uL 150-450 N PLT) MEAN PLATELET VOLUME (test code 9.4 FL 7.4-10.4 N = MPV) NEUTROPHIL % (test code = NT%) 38.6 % 42-86 L IMMATURE GRANULOCYTE % (test 0.2 % 0.0-2.0 N code = IG%) LYMPHOCYTE % (test code = LY%) 44.0 % 24-44 N MONOCYTE % (test code = MO%) 9.3 % 0.0-4.0 H EOSINOPHIL % (test code = EO%) 7.4 % 0.0-2.7 H BASOPHIL % (test code = BA%) 0.5 % 0.0-0.5 N NUCLEATED RBC % (test code = 0.0 % 0.0-0.0 N NRBC%) NEUTROPHIL # (test code = NT#) 2.20 x10 3/uL 1.8-7.7 N IMMATURE GRANULOCYTE # (test 0.01 x10 3/uL 0.00-0.03 N code = IG#) LYMPHOCYTE # (test code = LY#) 2.51 x10 3/uL 1.0-4.8 N MONOCYTE # (test code = MO#) 0.53 x10 3/uL 0.0-0.8 N EOSINOPHIL # (test code = EO#) 0.42 x10 3/uL 0.0-0.5 N BASOPHIL # (test code = BA#) 0.03 x10 3/uL 0.0-0.2 N NUCLEATED RBC # (test code = 0.0 X10 3/uL 0.0-0.2 N NRBC#) RHEUMATOID FACTOR [id number] 09:57:00 Test Item Value Reference Range Interpretation Comments RHEUMATOID FACTOR SCREEN (test code NEGATIVE NEGATIVE = RA) CBC W/AUTO [id number] 04:59:00 Test Item Value Reference Range Interpretation Comments WHITE BLOOD CELL (test code = 6.48 x10 3/uL 4.80-10.80 N WBC) RED BLOOD CELL (test code = 4.22 x10 6/uL 4.2-5.4 N RBC) HEMOGLOBIN (test code = HGB) 12.7 G/DL 12.0-16.0 N HEMATOCRIT (test code = HCT) 40.4 % 37-47 N MEAN CELL VOLUME (test code = 95.7 FL 81-99 N MCV) MEAN CELL HGB (test code = MCH) 30.1 PG 27-31 N MEAN CELL HGB CONCENTRATION 31.4 G/DL 33-37 L (test code = MCHC) RED CELL DISTRIBUTION WIDTH 13.2 % 11.5-14.5 N (test code = RDW) PLATELET COUNT (test code = 273 x10 3/uL 150-450 N PLT) MEAN PLATELET VOLUME (test code 9.0 FL 7.4-10.4 N = MPV) NEUTROPHIL % (test code = NT%) 48.3 % 42-86 N IMMATURE GRANULOCYTE % (test 0.2 % 0.0-2.0 N code = IG%) LYMPHOCYTE % (test code = LY%) 34.7 % 24-44 N MONOCYTE % (test code = MO%) 10.6 % 0.0-4.0 H EOSINOPHIL % (test code = EO%) 5.6 % 0.0-2.7 H BASOPHIL % (test code = BA%) 0.6 % 0.0-0.5 H NUCLEATED RBC % (test code = 0.0 % 0.0-0.0 N NRBC%) NEUTROPHIL # (test code = NT#) 3.13 x10 3/uL 1.8-7.7 N IMMATURE GRANULOCYTE # (test 0.01 x10 3/uL 0.00-0.03 N code = IG#) LYMPHOCYTE # (test code = LY#) 2.25 x10 3/uL 1.0-4.8 N MONOCYTE # (test code = MO#) 0.69 x10 3/uL 0.0-0.8 N EOSINOPHIL # (test code = EO#) 0.36 x10 3/uL 0.0-0.5 N BASOPHIL # (test code = BA#) 0.04 x10 3/uL 0.0-0.2 N NUCLEATED RBC # (test code = 0.0 X10 3/uL 0.0-0.2 N NRBC#) SED [id number] 04:59:00 Test Item Value Reference Range Interpretation Comments SED RATE (test code = SEDW) 4 MM/HR 0-20 N CBC W/AUTO [id number] 04:12:00 Test Item Value Reference Range Interpretation Comments WHITE BLOOD CELL (test code = 6.48 x10 3/uL 4.80-10.80 N WBC) RED BLOOD CELL (test code = 4.22 x10 6/uL 4.2-5.4 N RBC) HEMOGLOBIN (test code = HGB) 12.7 G/DL 12.0-16.0 N HEMATOCRIT (test code = HCT) 40.4 % 37-47 N MEAN CELL VOLUME (test code = 95.7 FL 81-99 N MCV) MEAN CELL HGB (test code = MCH) 30.1 PG 27-31 N MEAN CELL HGB CONCENTRATION 31.4 G/DL 33-37 L (test code = MCHC) RED CELL DISTRIBUTION WIDTH 13.2 % 11.5-14.5 N (test code = RDW) PLATELET COUNT (test code = 273 x10 3/uL 150-450 N PLT) MEAN PLATELET VOLUME (test code 9.0 FL 7.4-10.4 N = MPV) NEUTROPHIL % (test code = NT%) 48.3 % 42-86 N IMMATURE GRANULOCYTE % (test 0.2 % 0.0-2.0 N code = IG%) LYMPHOCYTE % (test code = LY%) 34.7 % 24-44 N MONOCYTE % (test code = MO%) 10.6 % 0.0-4.0 H EOSINOPHIL % (test code = EO%) 5.6 % 0.0-2.7 H BASOPHIL % (test code = BA%) 0.6 % 0.0-0.5 H NUCLEATED RBC % (test code = 0.0 % 0.0-0.0 N NRBC%) NEUTROPHIL # (test code = NT#) 3.13 x10 3/uL 1.8-7.7 N IMMATURE GRANULOCYTE # (test 0.01 x10 3/uL 0.00-0.03 N code = IG#) LYMPHOCYTE # (test code = LY#) 2.25 x10 3/uL 1.0-4.8 N MONOCYTE # (test code = MO#) 0.69 x10 3/uL 0.0-0.8 N EOSINOPHIL # (test code = EO#) 0.36 x10 3/uL 0.0-0.5 N BASOPHIL # (test code = BA#) 0.04 x10 3/uL 0.0-0.2 N NUCLEATED RBC # (test code = 0.0 X10 3/uL 0.0-0.2 N NRBC#) SED [id number] 04:12:00 Test Item Value Reference Range Interpretation Comments SED RATE (test code = SEDW) MM/HR 0-20 BASIC METABOLIC [id number] 04:06:00 Test Item Value Reference Range Interpretation Comments SODIUM (test code = 142 MMOL/L 133-145 N NA) POTASSIUM (test code = 4.6 MMOL/L 3.6-5.2 N K) CHLORIDE (test code = 106 MMOL/L 100-108 N CL) CARBON DIOXIDE (test 28 MMOL/L 22-32 N code = CO2) GLUCOSE (test code = 99 MG/DL 65-99 N Results of this assay GLU) method may be f alsely depressed orele vated if patient is t aking sulfasalazine. BLOOD UREA NITROGEN 28 MG/DL 6-20 H (test code = BUN) GLOMERULAR FILTRATION 60 58-135 N Report ing units: RATE (test code = GFR) mL/mi n/1.73m\\S\\2 (Modified MDRD Formula) CREATININE (test code 0.99 MG/DL 0.60-1.00 N = CREAT) CALCIUM (test code = 8.8 MG/DL 8.7-10.5 N CA) [id number] 04:06:00 Test Item Value Reference Range Interpretation Comments MAGNESIUM (test code = MAG) 1.9 MG/DL 1.8-2.4 N BASIC METABOLIC [id number] 06:38:00 Test Item Value Reference Range Interpretation Comments SODIUM (test code = 140 MMOL/L 133-145 N NA) POTASSIUM (test code = 4.1 MMOL/L 3.6-5.2 N K) CHLORIDE (test code = 105 MMOL/L 100-108 N CL) CARBON DIOXIDE (test 27 MMOL/L 22-32 N code = CO2) GLUCOSE (test code = 100 MG/DL 65-99 H Results of this assay GLU) method may be f alsely depressed orele vated if patient is t aking sulfasalazine. BLOOD UREA NITROGEN 34 MG/DL 6-20 H (test code = BUN) GLOMERULAR FILTRATION 63 58-135 N Report ing units: RATE (test code = GFR) mL/mi n/1.73m\\S\\2 (Modified MDRD Formula) CREATININE (test code 0.96 MG/DL 0.60-1.00 N = CREAT) CALCIUM (test code = 9.6 MG/DL 8.7-10.5 N CA) [id number] 06:38:00 Test Item Value Reference Range Interpretation Comments MAGNESIUM (test code = MAG) 1.9 MG/DL 1.8-2.4 N CBC W/AUTO [id number] 06:22:00 Test Item Value Reference Range Interpretation Comments WHITE BLOOD CELL (test code = 5.12 x10 3/uL 4.80-10.80 N WBC) RED BLOOD CELL (test code = 4.77 x10 6/uL 4.2-5.4 N RBC) HEMOGLOBIN (test code = HGB) 14.3 G/DL 12.0-16.0 N HEMATOCRIT (test code = HCT) 44.7 % 37-47 N MEAN CELL VOLUME (test code = 93.7 FL 81-99 N MCV) MEAN CELL HGB (test code = MCH) 30.0 PG 27-31 N MEAN CELL HGB CONCENTRATION 32.0 G/DL 33-37 L (test code = MCHC) RED CELL DISTRIBUTION WIDTH 13.3 % 11.5-14.5 N (test code = RDW) PLATELET COUNT (test code = 334 x10 3/uL 150-450 N PLT) MEAN PLATELET VOLUME (test code 9.3 FL 7.4-10.4 N = MPV) NEUTROPHIL % (test code = NT%) 39.2 % 42-86 L IMMATURE GRANULOCYTE % (test 0.2 % 0.0-2.0 N code = IG%) LYMPHOCYTE % (test code = LY%) 42.6 % 24-44 N MONOCYTE % (test code = MO%) 12.1 % 0.0-4.0 H EOSINOPHIL % (test code = EO%) 5.3 % 0.0-2.7 H BASOPHIL % (test code = BA%) 0.6 % 0.0-0.5 H NUCLEATED RBC % (test code = 0.0 % 0.0-0.0 N NRBC%) NEUTROPHIL # (test code = NT#) 2.01 x10 3/uL 1.8-7.7 N IMMATURE GRANULOCYTE # (test 0.01 x10 3/uL 0.00-0.03 N code = IG#) LYMPHOCYTE # (test code = LY#) 2.18 x10 3/uL 1.0-4.8 N MONOCYTE # (test code = MO#) 0.62 x10 3/uL 0.0-0.8 N EOSINOPHIL # (test code = EO#) 0.27 x10 3/uL 0.0-0.5 N BASOPHIL # (test code = BA#) 0.03 x10 3/uL 0.0-0.2 N NUCLEATED RBC # (test code = 0.0 X10 3/uL 0.0-0.2 N NRBC#) LDH [id number] 08:10:00 Test Item Value Reference Range Interpretation Comments LDH (test code = LDHT) 255 IU/L 119-226 H LDH 1 % (test code = 24 % 17-32 LDH1%) LDH 2 % (test code = 26 % 25-40 LDH2%) LDH 3 % (test code = 24 % 17-27 LDH3%) LDH 4 % (test code = 13 % 5-13 LDH4%) LDH 5 % (test code = 13 % 4-20 LDH5%) LDH ISOENZYME Comment () The LDH isoenz yme INTERPRETATION (test pattern appears code = LDHINT) normal despit e elevationof the total LDH.Performed A t: HD [facility] [address] [id number] Kyle L MD Ph:[phone] rforme d At: [facility] [address] [id number] ra Fareed SCHNEIDER Ph:[phone] LACTIC [id number] 08:10:00 Test Item Value Reference Range Interpretation Comments LACTIC ACID (test code = LACT) 0.7 MMOL/L 0.5-2.2 N BASIC METABOLIC [id number] 06:19:00 Test Item Value Reference Range Interpretation Comments SODIUM (test code = 138 MMOL/L 133-145 N NA) POTASSIUM (test code = 4.4 MMOL/L 3.6-5.2 K) CHLORIDE (test code = 102 MMOL/L 100-108 N CL) CARBON DIOXIDE (test 27 MMOL/L 22-32 N code = CO2) GLUCOSE (test code = 92 MG/DL 65-99 N Results of this assay GLU) method may be f alsely depressed orele vated if patient is t aking sulfasalazine. BLOOD UREA NITROGEN 35 MG/DL 6-20 H (test code = BUN) GLOMERULAR FILTRATION 52 58-135 L Report ing units: RATE (test code = GFR) mL/mi n/1.73m\\S\\2 (Modified MDRD Formula) CREATININE (test code 1.12 MG/DL 0.60-1.00 H = CREAT) CALCIUM (test code = 9.7 MG/DL 8.7-10.5 N CA) [id number] 06:19:00 Test Item Value Reference Range Interpretation Comments MAGNESIUM (test code = MAG) 1.9 MG/DL 1.8-2.4 N CBC W/AUTO [id number] 05:40:00 Test Item Value Reference Range Interpretation Comments WHITE BLOOD CELL (test code = 4.58 x10 3/uL 4.80-10.80 L WBC) RED BLOOD CELL (test code = 4.81 x10 6/uL 4.2-5.4 N RBC) HEMOGLOBIN (test code = HGB) 14.5 G/DL 12.0-16.0 N HEMATOCRIT (test code = HCT) 44.8 % 37-47 N MEAN CELL VOLUME (test code = 93.1 FL 81-99 N MCV) MEAN CELL HGB (test code = MCH) 30.1 PG 27-31 N MEAN CELL HGB CONCENTRATION 32.4 G/DL 33-37 L (test code = MCHC) RED CELL DISTRIBUTION WIDTH 13.3 % 11.5-14.5 N (test code = RDW) PLATELET COUNT (test code = 324 x10 3/uL 150-450 N PLT) MEAN PLATELET VOLUME (test code 9.3 FL 7.4-10.4 N = MPV) NEUTROPHIL % (test code = NT%) 29.0 % 42-86 L IMMATURE GRANULOCYTE % (test 0.2 % 0.0-2.0 N code = IG%) LYMPHOCYTE % (test code = LY%) 48.5 % 24-44 H MONOCYTE % (test code = MO%) 14.8 % 0.0-4.0 H EOSINOPHIL % (test code = EO%) 6.8 % 0.0-2.7 H BASOPHIL % (test code = BA%) 0.7 % 0.0-0.5 H NUCLEATED RBC % (test code = 0.0 % 0.0-0.0 N NRBC%) NEUTROPHIL # (test code = NT#) 1.33 x10 3/uL 1.8-7.7 L IMMATURE GRANULOCYTE # (test 0.01 x10 3/uL 0.00-0.03 N code = IG#) LYMPHOCYTE # (test code = LY#) 2.22 x10 3/uL 1.0-4.8 N MONOCYTE # (test code = MO#) 0.68 x10 3/uL 0.0-0.8 N EOSINOPHIL # (test code = EO#) 0.31 x10 3/uL 0.0-0.5 N BASOPHIL # (test code = BA#) 0.03 x10 3/uL 0.0-0.2 N NUCLEATED RBC # (test code = 0.0 X10 3/uL 0.0-0.2 N NRBC#) - XR CHEST 1 [id number] 09:20:00 Patient Name: YOSSI HODGES Unit No: [id number] EXAMS: CPT CODE: [id number] XR CHEST 1 V [id number] Reason: chf exacerbation - XR CHEST 1 V 09/11/2019 8:14 AM Indication: CHF COMPARISON: 09/09/2019 FINDINGS: The heart and vessels are now within normal limits. A small amount of right suprahilar patchy groundglass infiltrate persists. No effusion. Impression: Significant improvement in fluid overload pattern. at 0920 Reported and signed by: Forest Mooney MD CC: James Plascencia MD Technologist: Cassie Ortega RT Trscrpt Dt/ (919)Nader Orig Print D/T: S: 09/11/2019 (922) [facility] NAME: YOSSI HODGES [address] PHYS: James Marshall MD [facility] [place] [address] : 1970 AGE: 48 SEX: F LOC: [id number] PHONE #: [phone] EXAM DATE: 09/11/2019 STATUS: ADM INFAX #: RAD NO: DC Dt: PAGE 1 Signed ReportBASIC METABOLIC PANEL 2019-09-11 05:09:00 Test Item Value Reference Range Interpretation Comments SODIUM (test code = 140 MMOL/L 133-145 N NA) POTASSIUM (test code = 3.5 MMOL/L 3.6-5.2 L K) CHLORIDE (test code = 103 MMOL/L 100-108 N CL) CARBON DIOXIDE (test 23 MMOL/L 22-32 N code = CO2) GLUCOSE (test code = 89 MG/DL 65-99 N Results of this assay GLU) method may be f alsely depressed orele vated if patient is t aking sulfasalazine. BLOOD UREA NITROGEN 25 MG/DL 6-20 H (test code = BUN) GLOMERULAR FILTRATION 55 58-135 L Report ing units: RATE (test code = GFR) mL/mi n/1.73m\\S\\2 (Modified MDRD Formula) CREATININE (test code 1.08 MG/DL 0.60-1.00 H = CREAT) CALCIUM (test code = 9.9 MG/DL 8.7-10.5 N CA) [id number] 05:09:00 Test Item Value Reference Range Interpretation Comments MAGNESIUM (test code = MAG) 1.9 MG/DL 1.8-2.4 N CBC W/AUTO [id number] 04:57:00 Test Item Value Reference Range Interpretation Comments WHITE BLOOD CELL (test code = 5.75 x10 3/uL 4.80-10.80 N WBC) RED BLOOD CELL (test code = 4.76 x10 6/uL 4.2-5.4 N RBC) HEMOGLOBIN (test code = HGB) 14.5 G/DL 12.0-16.0 N HEMATOCRIT (test code = HCT) 44.5 % 37-47 N MEAN CELL VOLUME (test code = 93.5 FL 81-99 N MCV) MEAN CELL HGB (test code = MCH) 30.5 PG 27-31 N MEAN CELL HGB CONCENTRATION 32.6 G/DL 33-37 L (test code = MCHC) RED CELL DISTRIBUTION WIDTH 13.4 % 11.5-14.5 N (test code = RDW) PLATELET COUNT (test code = 294 x10 3/uL 150-450 N PLT) MEAN PLATELET VOLUME (test code 9.3 FL 7.4-10.4 N = MPV) NEUTROPHIL % (test code = NT%) 52.8 % 42-86 N IMMATURE GRANULOCYTE % (test 0.2 % 0.0-2.0 N code = IG%) LYMPHOCYTE % (test code = LY%) 33.9 % 24-44 N MONOCYTE % (test code = MO%) 8.7 % 0.0-4.0 H EOSINOPHIL % (test code = EO%) 3.5 % 0.0-2.7 H BASOPHIL % (test code = BA%) 0.9 % 0.0-0.5 H NUCLEATED RBC % (test code = 0.0 % 0.0-0.0 N NRBC%) NEUTROPHIL # (test code = NT#) 3.04 x10 3/uL 1.8-7.7 N IMMATURE GRANULOCYTE # (test 0.01 x10 3/uL 0.00-0.03 N code = IG#) LYMPHOCYTE # (test code = LY#) 1.95 x10 3/uL 1.0-4.8 N MONOCYTE # (test code = MO#) 0.50 x10 3/uL 0.0-0.8 N EOSINOPHIL # (test code = EO#) 0.20 x10 3/uL 0.0-0.5 N BASOPHIL # (test code = BA#) 0.05 x10 3/uL 0.0-0.2 N NUCLEATED RBC # (test code = 0.0 X10 3/uL 0.0-0.2 N NRBC#) THROMBOPLASTIN TIME [id number] 04:54:00 Test Item Value Reference Range Interpretation Comments THROMBOPLASTIN TIME 71.2 SECONDS 22.5-35.3 HH *Therap eutic level PARTIAL (test code = for hep cole: 1.5 - PTT) 2.5 times the average patient value of 30.0 seconds. The aP TT tet should not be used to evaluat e low moleculat weigh t heparin anticoagulant therapy. Is patient on anticoagulants? HeparinCV CALL [id number] 04:54:00 Test Item Value Reference Range Interpretation Comments CV CALL COAG (test code = CVCG) Is patient on anticoagulants? HeparinTHROMBOPLASTIN TIME [id number] 04:54:00 Test Item Value Reference Range Interpretation Comments THROMBOPLASTIN TIME 71.2 SECONDS 22.5-35.3 HH *Therap eutic level PARTIAL (test code = for hep cole: 1.5 - PTT) 2.5 times the average patient value of 30.0 seconds. The aP TT tet should not be used to evaluat e low moleculat weigh t heparin anticoagulant therapy. Is patient on anticoagulants? HeparinCV CALL [id number] 04:54:00 Test Item Value Reference Range Interpretation Comments CV CALL COAG Not Called Patient is rece iving (test code = anticoagulant t herapy.0454 CVCG) - 09/11/19; by [email or web address]. Is patient on anticoagulants? HeparinTHROMBOPLASTIN TIME [id number] 21:24:00 Test Item Value Reference Range Interpretation Comments THROMBOPLASTIN TIME 37.5 SECONDS 22.5-35.3 H *Therap eutic level PARTIAL (test code = for hep cole: 1.5 - PTT) 2.5 times the average patient value of 30.0 seconds. The aP TT tet should not be used to evaluat e low moleculat weigh t heparin anticoagulant therapy. Is patient on anticoagulants? HeparinTHROMBOPLASTIN TIME [id number] 15:09:00 Test Item Value Reference Range Interpretation Comments THROMBOPLASTIN TIME 71.2 SECONDS 22.5-35.3 HH *Therap eutic level PARTIAL (test code = for hep cole: 1.5 - PTT) 2.5 times the average patient value of 30.0 seconds. The aP TT tet should not be used to evaluat e low moleculat weigh t heparin anticoagulant therapy. Is patient on anticoagulants? HeparinCV CALL [id number] 15:09:00 Test Item Value Reference Range Interpretation Comments CV CALL COAG (test code = CVCG) Is patient on anticoagulants? HeparinTHROMBOPLASTIN TIME [id number] 15:09:00 Test Item Value Reference Range Interpretation Comments THROMBOPLASTIN TIME 71.2 SECONDS 22.5-35.3 HH *Therap eutic level PARTIAL (test code = for hep cole: 1.5 - PTT) 2.5 times the average patient value of 30.0 seconds. The aP TT tet should not be used to evaluat e low moleculat weigh t heparin anticoagulant therapy. Is patient on anticoagulants? HeparinCV CALL [id number] 15:09:00 Test Item Value Reference Range Interpretation Comments CV CALL COAG Not Called Patient is rece iving (test code = anticoagulant t herapy.1509 CVCG) - 09/10/19; by D.[email or web address]. Is patient on anticoagulants? HeparinGLYCOSYLATED HEMOGLOBIN (HA1C)2019-09-10 09:53:00 Test Item Value Reference Range Interpretation Comments GLYCOSYLATED HEMOGLOBIN (HA1C) 5.6 % TOT HB 4.5-6.2 N (test code = GLYHGB) BASIC METABOLIC [id number] 08:35:00 Test Item Value Reference Range Interpretation Comments SODIUM (test code = 138 MMOL/L 133-145 N NA) POTASSIUM (test code = 3.4 MMOL/L 3.6-5.2 L K) CHLORIDE (test code = 103 MMOL/L 100-108 N CL) CARBON DIOXIDE (test 25 MMOL/L 22-32 N code = CO2) GLUCOSE (test code = 105 MG/DL 65-99 H Results of this assay GLU) method may be f alsely depressed orele vated if patient is t aking sulfasalazine. BLOOD UREA NITROGEN 14 MG/DL 6-20 N (test code = BUN) GLOMERULAR FILTRATION 68 58-135 N Report ing units: RATE (test code = GFR) mL/mi n/1.73m\\S\\2 (Modified MDRD Formula) CREATININE (test code 0.89 MG/DL 0.60-1.00 N = CREAT) CALCIUM (test code = 9.4 MG/DL 8.7-10.5 N CA) LIPID PROFILE (CORONARY RISK)2019-09-10 08:35:00 Test Item Value Reference Range Interpretation Comments TRIGLYCERIDES (test 76 MG/DL 30-200 N code = TRIG) CHOLESTEROL (test code 167 MG/DL 122-200 N = CHOL) CHOLESTEROL/HDL RATIO 2.0 1.5-4.5 N 1. Ini tial (test code = CHOLHDL) classi fication based on total choles terol: <200 mg/dl Elvia rable cholesterol 200 -239 mg/dl Borderlin e high risk cholestero l >240 mg/dl High risk cholesterol2. I nitial classification based on LDL choleste rol: <130 mg/dl Elvia rable LDL cholesterol 130-159 mg/dl Borderline high risk LDL >159 mg/dl High risk LDL choles terol3. HDL < 35 mg/dl represent incre ased CHD risk; HDL > 60 mg/dl represent decreased CHD r isk.4. Chol/HDL > 5.0 represent incre ased CHD risk in men ; Chol/HDL > 4.5 represent incre ased CHD risk in wom en. HDL CHOLESTEROL (test 82 MG/DL 40-60 H code = HDL) LIPOPROTEIN LDL (test 70 MG/DL 62-130 N code = LDL) LIPOPROTEIN VLDL (test 15 MG/DL 3-60 N code = VLDL) [id number] 08:35:00 Test Item Value Reference Range Interpretation Comments MAGNESIUM (test code = MAG) 2.0 MG/DL 1.8-2.4 N THYROID STIMULATING [id number] 08:35:00 Test Item Value Reference Range Interpretation Comments THYROID STIMULATING 0.52 0.42-5.47 N Micro-In ternational HORMONE (test code = TSH) Un its/LResults of this assay method ma y be falsely depress ed orelevated if p atient is taking high doses of Biotin. [id number] 08:35:00 Test Item Value Reference Range Interpretation Comments TROPONIN-I (test < 0.04 NG/ML 0.00-0.06 N - The use of serial code = TROPI) sampling and t esting protocol is a recommended pra ctice.- An elevated tro ponin level alone is often not sufficient for diagnosis of myocardial infarction.Resu lts of this assay meth od may be falsely depress ed orelevated if p atient is taking high dos es of Biotin. THROMBOPLASTIN TIME [id number] 07:46:00 Test Item Value Reference Range Interpretation Comments THROMBOPLASTIN TIME 44.7 SECONDS 22.5-35.3 H *Therap eutic level PARTIAL (test code = for hep cole: 1.5 - PTT) 2.5 times the average patient value of 30.0 seconds. The aP TT tet should not be used to evaluat e low moleculat weigh t heparin anticoagulant therapy. Is patient on anticoagulants? HeparinCBC W/AUTO [id number] 07:40:00 Test Item Value Reference Range Interpretation Comments WHITE BLOOD CELL (test code = 7.30 x10 3/uL 4.80-10.80 N WBC) RED BLOOD CELL (test code = 4.51 x10 6/uL 4.2-5.4 N RBC) HEMOGLOBIN (test code = HGB) 13.6 G/DL 12.0-16.0 N HEMATOCRIT (test code = HCT) 41.5 % 37-47 N MEAN CELL VOLUME (test code = 92.0 FL 81-99 N MCV) MEAN CELL HGB (test code = MCH) 30.2 PG 27-31 N MEAN CELL HGB CONCENTRATION 32.8 G/DL 33-37 L (test code = MCHC) RED CELL DISTRIBUTION WIDTH 13.5 % 11.5-14.5 N (test code = RDW) PLATELET COUNT (test code = 290 x10 3/uL 150-450 N PLT) MEAN PLATELET VOLUME (test code 9.4 FL 7.4-10.4 N = MPV) NEUTROPHIL % (test code = NT%) 63.3 % 42-86 N IMMATURE GRANULOCYTE % (test 0.3 % 0.0-2.0 N code = IG%) LYMPHOCYTE % (test code = LY%) 27.5 % 24-44 N MONOCYTE % (test code = MO%) 6.6 % 0.0-4.0 H EOSINOPHIL % (test code = EO%) 1.6 % 0.0-2.7 N BASOPHIL % (test code = BA%) 0.7 % 0.0-0.5 H NUCLEATED RBC % (test code = 0.0 % 0.0-0.0 N NRBC%) NEUTROPHIL # (test code = NT#) 4.62 x10 3/uL 1.8-7.7 N IMMATURE GRANULOCYTE # (test 0.02 x10 3/uL 0.00-0.03 N code = IG#) LYMPHOCYTE # (test code = LY#) 2.01 x10 3/uL 1.0-4.8 N MONOCYTE # (test code = MO#) 0.48 x10 3/uL 0.0-0.8 N EOSINOPHIL # (test code = EO#) 0.12 x10 3/uL 0.0-0.5 N BASOPHIL # (test code = BA#) 0.05 x10 3/uL 0.0-0.2 N NUCLEATED RBC # (test code = 0.0 X10 3/uL 0.0-0.2 N NRBC#) [id number] 00:47:00 Test Item Value Reference Range Interpretation Comments TROPONIN-I (test < 0.04 NG/ML 0.00-0.06 N - The use of serial code = TROPI) sampling and t esting protocol is a recommended pra ctice.- An elevated tro ponin level alone is often not sufficient for diagnosis of myocardial infarction.Resu lts of this assay meth od may be falsely depress ed orelevated if p atient is taking high dos es of Biotin. DRUG OF ABUSE SCREEN [id number] 20:32:00 Test Item Value Reference Interpretation Comments Range UR COCAINE (test NEGATIVE NEGATIVE code = COCAU) UR MDMA (test code = NEGATIVE NEGATIVE MDMAQLU) UR CANNABINOIDS NEGATIVE NEGATIVE (test code = CANU) UR AMPHETAMINE (test POSITIVE NEGATIVE A If conf irmatory testing code = AMPHU) required, cont act laboratory. UR BARBITURATE QUAL NEGATIVE NEGATIVE (test code = BARBQLU) UR BENZODIAZEPINE NEGATIVE NEGATIVE (test code = BENZU) UR OPIATES QUAL NEGATIVE NEGATIVE (test code = OPIAQLU) UR PHENCYCLIDINE NEGATIVE NEGATIVE Urine Drug Abuse Screen (PCP) (test code = provides preliminary PHENCU) results thatmay be confirmed by hilaria jacobs methods (i.e., GC/MS) at [facility]. Results of scre en may not be usedin crimi nal justice, job performance or professionalcre dential review, or infa nt custody issues. Negativ e Seco Level ng/ml ------- ----- Cocaine 3 00 Methamphetamine (Ecstacy) 500 Cannabinoid s (THC) 50 Amphetamine 100 0 Barbiturates 20 0 Benzodiazepines 200 Opiates 300 Phencyclidi ne (PCP) 25 UA RFLX [id number] 20:25:00 Test Item Value Reference Range Interpretation Comments UA COLOR (test code = COLU) YELLOW YELLOW UA APPEARANCE (test code = CLEAR CLEAR APPU) UA GLUCOSE DIPSTICK (test NEGATIVE mg/dL NEGATIVE code = DGLUU) UA BILIRUBIN DIPSTICK (test NEGATIVE NEGATIVE code = BILU) UA KETONE DIPSTICK (test code NEGATIVE mg/dL NEGATIVE = KETU) UA SPECIFIC GRAVITY (test 1.005 1.001-1.035 N code = SGU) UA BLOOD DIPSTICK (test code NEGATIVE NEGATIVE = SHERIN) UA PH DIPSTICK (test code = 7.0 5.5-7.0 N BUSHRA) UA PROTEIN DIPSTICK (test NEGATIVE mg/dL NEGATIVE code = PROU) UA UROBILINOGEN DIPSTICK NORMAL mg/dL NORMAL (test code = URO) UA NITRITE DIPSTICK (test NEGATIVE NEGATIVE code = ZARI) UA LEUKOCYTE ESTERASE NEGATIVE NEGATIVE DIPSTICK (test code = LEUU) UA COMMENT (test code = COMU) VOLUME 10-12 ML URINE SPECIMEN DESCRIPTION Clean Catch (test code = UASPEC) HCG SERUM [id number] 19:05:00 Test Item Value Reference Range Interpretation Comments HCG SERUM QUAL NEGATIVE NEGATIVE False negativ es may occur (test code = when levels of hCGare below HCGQL) 10 mIU/ml. When is still suspec clarence, a new specimenshould be obtained after 48 hours and re-tested.If wa iting 48 hours is not me dically advisable,the t est result should be confi rmed using aquantitative h CG assay. TROPONIN I [id number] 17:38:00 Test Item Value Reference Range Interpretation Comments TROPONIN I RAPID 0.03 NG/ML 0.00-0.08 N Performed b y certified (test code = complaint operator at [facility]) RH - The use of serial sampling and te sting protocol is a recommended pra ctice.- An elevated tro ponin level alone is often not sufficient for diagnosis of my ocardial infarction. D-DIMER [id number] 17:30:00 Test Item Value Reference Range Interpretation Comments D-DIMER QUANT 552 ng/mLFEU less than 500 H * Cut-off: Le ss than or (test code = equal to 500 ng /mL Results DDIMER) of the D-Dimer test should always be inter pretedin conjunction wit h the patient's medic al history, clinicalpresent ation, and other findings. Clinical diagnosis shoul dnot be based on the re sults of this assay mikaela kumar. Specimens from patients w ho have received monocl onalantibody for diagnosis o r therapy, may contain anti-mouseantib tristen (HAMA). HAMA may interf ere with this assay. PROTHROMBIN [id number] 17:29:00 Test Item Value Reference Range Interpretation Comments PROTHROMBIN TIME 11.7 SECONDS 9.9-13.2 N Referen ce Range PATIENT (test code = revised from PTP) 10.7-13.9 as of 06/23/17. INTERNATIONAL NORMAL 1.02 Recomme nded INR range RATIO (test code = (warfarin therapy): INR) 2.0 - 3.0INR (International Normalized Rati o) should beused w hen interpreting or al anticoaglulant therapy. For at rial fibrillation an d treatment orprevention of deep vein thrombosis . Patients with Palmaz-Su s tent *: 2.0 - 3.0 Pa tients with mechanical heart valve *: 2.5 - 3.5 Patients with flex-stent *: 3 .0 - 4.0(*) = inspector type's suggested range Is patient on anticoagulants? No AnticoagulantsTHROMBOPLASTIN TIME PARTIAL 2019-09-09 17:29:00 Test Item Value Reference Range Interpretation Comments THROMBOPLASTIN TIME 26.1 SECONDS 24.7-38.0 N *Therap eutic level PARTIAL (test code = for hep cole: 1.5 - PTT) 2.5 times the average patient value of 30.0 seconds. The aP TT tet should not be used to evaluat e low moleculat weigh t heparin anticoagulant therapy. Is patient on anticoagulants? No [id number] 17:29:00 Test Item Value Reference Range Interpretation Comments FIBRINOGEN (test code = FIB) 418 mg/dl 200-400 H Is patient on anticoagulants? No AnticoagulantsCoronavirus 2018 nCoV Bedside 2019-09-09 17:26:00 Test Item Value Reference Range Interpretation Comments Coronavirus 2018 Negative Negative Results ca lled to and nCoV Bedside (test read back by ; [id number], code = [id number]) Tee, Sindhu Morris.I D NOW COVID-19 assay performed on the ID NOW I nstrument andrea rapid molec ular in vitro diagnosti c test utilizing aniso thermal nucleic acid amplification t echnology intendedfor the qualitative det ection of nucleic acid fr om [id number]-[id number] v iral RNA in direct nasal , nasopharyngeal orthroat swabs and nasal , nasopharyngeal or throat swabseluted in viral transport media from individuals who aresuspected of COVID-19 by their health care provider. Resul ts are for the identificat ion of SARS-CoV-2 RNA. For Use Under an Emerge ncy Use Authorization ( EUA) Only Negative result s do not preclude SARS-C oV-2 infection andsh ould not be used as the sole basis for patient managementdecis ions. Negative result s must be combined with clinicalobserva tions, patient history , and epidemiological informatio n. LDH [id number] 16:39:00 Test Item Value Reference Range Interpretation Comments LDH (test code = LDHT) IU/L 119-226 LDH 1 % (test code = LDH1%) 17-32 LDH 2 % (test code = LDH2%) 25-40 LDH 3 % (test code = LDH3%) 17-27 LDH 4 % (test code = LDH4%) 5-13 LDH 5 % (test code = LDH5%) 4-20 LDH ISOENZYME INTERPRETATION (test code = LDHINT) LACTIC [id number] 16:39:00 Test Item Value Reference Range Interpretation Comments LACTIC ACID (test code = LACT) 0.7 MMOL/L 0.5-2.2 N PROTHROMBIN [id number] 16:06:00 Test Item Value Reference Range Interpretation Comments PROTHROMBIN TIME 11.7 SECONDS 9.9-13.2 N Referen ce Range PATIENT (test code = revised from PTP) 10.7-13.9 as of 06/23/17. INTERNATIONAL NORMAL 1.02 Recomme nded INR range RATIO (test code = (warfarin therapy): INR) 2.0 - 3.0INR (International Normalized Rati o) should beused w hen interpreting or al anticoaglulant therapy. For at rial fibrillation an d treatment orprevention of deep vein thrombosis . Patients with Palmaz-Su s tent *: 2.0 - 3.0 Pa tients with mechanical heart valve *: 2.5 - 3.5 Patients with flex-stent *: 3 .0 - 4.0(*) = inspector type's suggested range Is patient on anticoagulants? No AnticoagulantsTHROMBOPLASTIN TIME PARTIAL 2019-09-09 16:06:00 Test Item Value Reference Range Interpretation Comments THROMBOPLASTIN TIME 26.1 SECONDS 24.7-38.0 N *Therap eutic level PARTIAL (test code = for hep cole: 1.5 - PTT) 2.5 times the average patient value of 30.0 seconds. The aP TT tet should not be used to evaluat e low moleculat weigh t heparin anticoagulant therapy. Is patient on anticoagulants? No [id number] 16:06:00 Test Item Value Reference Range Interpretation Comments FIBRINOGEN (test code = FIB) mg/dl 200-400 Is patient on anticoagulants? No AnticoagulantsCBC W/AUTO [id number] 15:35:00 Test Item Value Reference Range Interpretation Comments WHITE BLOOD CELL (test code = 8.51 x10 3/uL 4.80-10.80 N WBC) RED BLOOD CELL (test code = 4.05 x10 6/uL 4.2-5.4 L RBC) HEMOGLOBIN (test code = HGB) 12.4 G/DL 12.0-16.0 N HEMATOCRIT (test code = HCT) 38.3 % 37-47 N MEAN CELL VOLUME (test code = 94.6 FL 81-99 N MCV) MEAN CELL HGB (test code = MCH) 30.6 PG 27-31 N MEAN CELL HGB CONCENTRATION 32.4 G/DL 33-37 L (test code = MCHC) RED CELL DISTRIBUTION WIDTH 13.6 % 11.5-14.5 N (test code = RDW) PLATELET COUNT (test code = 299 x10 3/uL 150-450 N PLT) MEAN PLATELET VOLUME (test code 9.8 FL 7.4-10.4 N = MPV) NEUTROPHIL % (test code = NT%) 67.0 % 42-86 N IMMATURE GRANULOCYTE % (test 0.5 % 0.0-2.0 N code = IG%) LYMPHOCYTE % (test code = LY%) 24.0 % 24-44 N MONOCYTE % (test code = MO%) 6.8 % 0.0-4.0 H EOSINOPHIL % (test code = EO%) 1.3 % 0.0-2.7 N BASOPHIL % (test code = BA%) 0.4 % 0.0-0.5 N NUCLEATED RBC % (test code = 0.0 % 0.0-0.0 N NRBC%) NEUTROPHIL # (test code = NT#) 5.71 x10 3/uL 1.8-7.7 N IMMATURE GRANULOCYTE # (test 0.04 x10 3/uL 0.00-0.03 H code = IG#) LYMPHOCYTE # (test code = LY#) 2.04 x10 3/uL 1.0-4.8 N MONOCYTE # (test code = MO#) 0.58 x10 3/uL 0.0-0.8 N EOSINOPHIL # (test code = EO#) 0.11 x10 3/uL 0.0-0.5 N BASOPHIL # (test code = BA#) 0.03 x10 3/uL 0.0-0.2 N NUCLEATED RBC # (test code = 0.0 X10 3/uL 0.0-0.2 N NRBC#) XS DOWN, SENDING TO [facility] PRO-BRAIN NATRIURETIC [id number] 15:28:00 Test Item Value Reference Range Interpretation Comments NT PRO-BRAIN 9216 PG/ML 0-125 H Results of this assay NATRIURETIC PEPTI method may be falsely (test code = PROBNP) depress ed orelevated if patient is t aking high doses of B iotin. COMPREHENSIVE METABOLIC [id number] 14:42:00 Test Item Value Reference Range Interpretation Comments SODIUM (test code = 137 MMOL/L 133-145 N NA) POTASSIUM (test code = 3.9 MMOL/L 3.6-5.2 N K) CHLORIDE (test code = 101 MMOL/L 100-108 N CL) CARBON DIOXIDE (test 26 MMOL/L 22-32 N code = CO2) GLUCOSE (test code = 105 MG/DL 65-99 H Results of this GLU) assay method ma y be falsely depress ed orelevated if patient is taki ng sulfasalazine. BLOOD UREA NITROGEN 14 MG/DL 6-20 N (test code = BUN) GLOMERULAR FILTRATION 73 58-135 N Report ing units: RATE (test code = GFR) mL/mi n/1.73m\\S\\2 (Modified MDRD Formula) CREATININE (test code 0.84 MG/DL 0.60-1.00 N = CREAT) TOTAL PROTEIN (test 7.0 G/DL 6.4-8.2 N code = PROT) ALBUMIN (test code = 3.4 G/DL 3.4-5.0 N ALB) GLOBULIN (test code = 3.6 G/DL 1.5-3.8 N GLOB) ALBUMIN/GLOBULIN RATIO 0.9 1.1-2.2 L (test code = A/G) CALCIUM (test code = 8.8 MG/DL 8.7-10.5 N CA) BILIRUBIN TOTAL (test 1.3 MG/DL 0.0-1.0 H code = BILT) SGOT/AST (test code = 25 Units/L 15-37 N Result s of this AST) assay method ma y be falsely depress ed orelevated if patient is taki ng sulfasalazine. SGPT/ALT (test code = 44 Units/L 30-65 N Result s of this ALT) assay method ma y be falsely depress ed orelevated if patient is taki ng sulfasalazine. ALKALINE PHOSPHATASE 114 Units/L 50-136 N TOTAL (test code = ALKP) - XR CHEST 1 [id number] 14:35:00 Patient Name: YOSSI HODGES Unit No: [id number] EXAMS: CPT CODE: [id number] XR CHEST 1 V [id number] Reason: chest pain - XR CHEST 1 V 09/09/2019 1:33 PM A frontal portable chest shows patchy airspace disease mostly in the right lung. There are mild diffuse increased interstitial markings with some Prasanth Blines present. Heart size is upper limits of normal. Pleural spaces are grossly clear. Bones are unremarkable. IMPRESSION: 1. Findings most likely related to acute congestion or fluid overload. 2. Super imposed pneumonia particularly in the right upper lung zone cannot completely be excluded. at 1436 Reported and signed by: Jarrett Arteaga MD CC: Marek Devine MD; Tito Patel NP Technologist: Kassie MENDES Trscrpt Dt/ ([id number] Orig Print D/T: S: 09/09/2019 (0451) [facility] NAME: YOSSI HODGES [id number] PHYS: RUSLAN.Alvina - [place] [address] : 1970 AGE: 48 SEX: F LOC: DAMIEN PHONE #: [phone] EXAM DATE: 09/09/2019 STATUS: REG ER FAX #: RAD NO: DC Dt: PAGE 1 Signed Report COMPREHENSIVE METABOLIC [id number] 14:20:00 Test Item Value Reference Range Interpretation Comments SODIUM (test code = 137 MMOL/L 133-145 N NA) POTASSIUM (test code = 3.9 MMOL/L 3.6-5.2 N K) CHLORIDE (test code = 101 MMOL/L 100-108 N CL) CARBON DIOXIDE (test 26 MMOL/L 22-32 N code = CO2) GLUCOSE (test code = 105 MG/DL 65-99 H Results of this assay GLU) method may be f alsely depressed orele vated if patient is t aking sulfasalazine. BLOOD UREA NITROGEN 14 MG/DL 6-20 N (test code = BUN) GLOMERULAR FILTRATION 73 58-135 N Report ing units: RATE (test code = GFR) mL/mi n/1.73m\\S\\2 (Modified MDRD Formula) CREATININE (test code 0.84 MG/DL 0.60-1.00 N = CREAT) TOTAL PROTEIN (test G/DL 6.4-8.2 code = PROT) ALBUMIN (test code = G/DL 3.4-5.0 ALB) GLOBULIN (test code = G/DL 1.5-3.8 GLOB) ALBUMIN/GLOBULIN RATIO 1.1-2.2 (test code = A/G) CALCIUM (test code = 8.8 MG/DL 8.7-10.5 N CA) BILIRUBIN TOTAL (test MG/DL 0.0-1.0 code = BILT) SGOT/AST (test code = Units/L 15-37 AST) SGPT/ALT (test code = Units/L 30-65 ALT) ALKALINE PHOSPHATASE Units/L 50-136 TOTAL (test code = ALKP) TROPONIN I [id number] 14:10:00 Test Item Value Reference Range Interpretation Comments TROPONIN I RAPID 0.06 NG/ML 0.00-0.08 N Performed b y certified (test code = complaint operator at [facility]) RH - The use of serial sampling and te sting protocol is a recommended pra ctice.- An elevated tro ponin level alone is often not sufficient for diagnosis of my ocardial infarction.
[2023-03-20 07:22] LABS: Absolute Lymphocytes (CBC) 2.2 K/uL (0.7-4.9); Hematocrit 35.7 % (36.0-45.0); MCV 83.4 fL (80-100); MPV 7.8 fL (7.6-11.3); Platelets 324 thou/uL (152-406); RBC Red Blood Cell Count 4.28 M/uL (3.86-4.86)
[2023-03-20 07:35] LABS: SARS-CoV-2 Antigen Rapid Res Negative (Negative)
--- NOTE | 2023-03-20 07:43 | RAD REPORT ---
EXAM DESCRIPTION: Lalitha Single View03/20/2023 7:38 am CLINICAL HISTORY: CHEST PAIN COMPARISON: No comparisons TECHNIQUE: Portable AP view of the chest. FINDINGS: The lungs are clear. No pneumothorax or effusion. The cardiomediastinal contours are unre markable apart from tortuosity of the aorta. IMPRESSION: No acute cardiopulmonary process.
[2023-03-20 07:48] LABS: Magnesium 2.1 mg/dL (1.6-2.4); Troponin High Sensitivity 49.7 pg/mL (<58.9)
[2023-03-20] MEDS ORDERED: LABETALOL 20 MG/4ML SYRINGE IV ONE (08:04)
[2023-03-20] MEDS ORDERED: MORPHINE 4 MG/ML SYR ONE (08:46)
--- NOTE | 2023-03-20 09:17 | ER ---
Nurse's Notes [facility] Name: Lorenza Arrington Age: 52 yrs Sex: Female : 1970 Arrival Date: 03/20/2023 Time: 06:33 Bed 13 Private MD: Diagnosis: Chest pain, unspecified;Heart failure, unspecified Presentation: 03/20 06:49 Chief complaint: Patient states: mid to left side chest pain of 9 that radiates to left pf1 shoulder blade,onset Monday, worse this AM 0000 with SOB and lightheadedness. Coronavirus screen: Vaccine status: Patient reports being unvaccinated. Client denies travel out of the [place] in the last 14 days. Client presents with at least one sign or symptom that may indicate coronavirus-19. Ebola Screen: Patient negative for fever greater than or equal to 101.5 degrees Fahrenheit, and additional compatible Ebola Virus Disease symptoms. Initial Sepsis Screen: Does the patient meet any 2 criteria? HR > 90 bpm. No. Patient's initial sepsis screen is negative. Does the patient have a suspected source of infection? No. Patient's initial sepsis screen is negative. Risk Assessment: Do you want to hurt yourself or someone else? Patient reports no desire to harm self or others. 06:49 Method Of Arrival: Wheelchair pf1 06:49 Acuity: WALLY 2 pf1 08:02 Onset of symptoms was March 20, 2023. ko1 Triage Assessment: 08:02 General: Appears uncomfortable. Respiratory: Onset: The symptoms/episode began/occurred ko1 gradually, the patient has moderate shortness of breath. Respiratory: Reports shortness of breath on exertion. 08:02 General: Behavior is calm, cooperative. ko1 Historical: - Allergies: 06:52 No Known Allergies; pf1 - PMHx: 06:52 CHF; HTN; brain aneurysm; pf1 - PSHx: 06:52 Cholecystectomy; aneurysm repair; pf1 - Immunization history:: Adult Immunizations up to date, Client reports having NOT received the Covid vaccine. Last tetanus immunization: < 10 years ago. - Social history:: Smoking status: Patient/guardian denies using tobacco, Stopped _ months ago 7 Patient uses Patient/guardian denies using alcohol, street drugs. Screenin:[facility] ED Fall Risk Assessment (Adult) History of falling in the last 3 months, pf1 including since admission No falls in past 3 months (0 pts) Confusion or Disorientation No (0 pts) Intoxicated or Sedated No (0 pts) Impaired Gait No (0 pts) Mobility Assist Device Used No (0 pt) Altered Elimination No (0 pt) Score/Fall Risk Level 0 - 2 = Low Risk Oriented to surroundings, Maintained a safe environment, Educated pt \T\ family on fall prevention, incl call for assistance when getting out of bed, Assessed \T\ reinforced patient's understanding of fall precautions, Provided non-skid footwear, Hourly rounding (assess needs \T\ fall precautionary measures) done, Used ambulatory aids as needed (educated on \T\ assisted with), Used gait belt as appropriate. Abuse screen: Denies threats or abuse. Nutritional screening: No deficits noted. Tuberculosis screening: No symptoms or risk factors identified. Assessment: 06:56 General: Appears in no apparent distress. comfortable, well groomed, well developed, pf1 Behavior is calm, cooperative, appropriate for age, quiet. Pain: Complains of pain in chest Pain currently is 9 out of 10 on a pain scale. Neuro: Level of Consciousness is awake, alert, obeys commands, Oriented to person, place, time, situation, Reports lightheadedness. Cardiovascular: Reports chest pain, lightheadedness, shortness of breath. Respiratory: Reports shortness of breath at rest Airway is patent Respiratory effort is even, unlabored, Respiratory pattern is regular, symmetrical. GI: No deficits noted. No signs and/or symptoms were reported involving the gastrointestinal system. : No deficits noted. No signs and/or symptoms were reported regarding the genitourinary system. EENT: No deficits noted. No signs and/or symptoms were reported regarding the EENT system. 08:00 Cardiovascular: Rhythm is sinus rhythm. Respiratory: Breath sounds are clear ko1 bilaterally. Vital Signs: 06:49 BP 189 / 121; Pulse 94; Resp 20; Temp 100.3; Pulse Ox 99% on R/A; Weight 74.84 kg; pf1 Height 5 ft. 0 in. ; Pain 9/10; 07:06 BP 188 / 106; Pulse 98; Resp 25; Pulse Ox 99% ; ko1 07:43 BP 188 / 128; Pulse 99; Resp 18; Pulse Ox 97% ; ko1 07:59 BP 175 / 108; Pulse 89; Resp 18; Pulse Ox 97% ; ko1 08:07 BP 174 / 114; Pulse 98; Resp 24; Pulse Ox 99% ; ko1 08:48 BP 156 / 101; Pulse 85; Resp 22; Pulse Ox 98% ; ko1 09:07 BP 147 / 89; Pulse 84; Resp 18; Pulse Ox 97% ; ko1 10:27 BP 151 / 92; Pulse 94; Resp 16; Pulse Ox 96% ; ko1 06:49 Body Mass Index 32.22 (74.84 kg, 152.4 cm) pf1 06:49 Pain Scale: Adult pf1 ED Course: 06:38 Patient arrived in ED. gm2 06:50 Norm Esposito DO is Attending Physician. ms3 06:52 Triage completed. pf1 06:55 Patient has correct armband on for positive identification. Placed in gown. Bed in low pf1 position. Call light in reach. 06:57 Inserted saline lock: 20 gauge in right forearm, using aseptic technique. Blood oe collected. 07:06 Magraret Campos, RN is Primary Nurse. ko1 07:15 SARS RAPID Sent. ko1 07:15 Flu Sent. ko1 07:15 Basic Metabolic Panel Sent. ko1 07:15 CBC with Diff Sent. ko1 07:15 D-Dimer Sent. ko1 07:15 Magnesium Sent. ko1 07:15 NT PRO-BNP Sent. ko1 07:15 Troponin HS Sent. ko1 07:39 XRAY Chest (1 view) In Process Unspecified. EDMS 08:00 Provided Education on: blood pressure control. ko1 08:00 Client placed on continuous cardiac and pulse oximetry monitoring. NIBP monitoring ko1 applied. quality system manager on. Door closed. Noise minimized. Lights dimmed. Warm blanket given. 08:00 No provider procedures requiring assistance completed. ko1 08:02 Arm band placed on left wrist. ko1 09:16 Jozef Nugent MD is Hospitalizing Provider. ms3 13:12 Patient admitted, IV remains in place. ko1 Administered Medications: 07:56 Drug: Labetalol IV 10 mg IV at calculated rate once Route: IV; Rate: calculated rate; ko1 Site: right wrist; 08:37 Drug: morphine IVP or IV 4 mg IVP once over 4 mins Route: IVP; Infused Over: 4 mins; ko1 Site: right wrist; 09:24 Drug: Aspirin PO Chewable Tablet 324 mg PO once; 81 mg tablets x 4 Route: PO; ko1 Medication: 08:00 VIS not applicable for this client. ko1 Outcome: 09:17 Decision to Hospitalize by Provider. ms3 13:12 Admitted to Tele accompanied by nurse, via stretcher, room 206, with chart, ko1 13:12 Condition: stable 13:12 Instructed on the need for admit, 13:13 Patient left the ED. ko1 Signatures: Dispatcher [employer] EDMS Angus Brooks Marcus, DO DO ms3 Margaret Campos RN RN ko1 Temitope Nath RN RN pf1 Hallie Thrasher gm2 Corrections: (The following items were deleted from the chart) 07:08 07:07 Condition: improved ko1 ko1 07:08 07:07 Discharge instructions given to Instructed on the need for admit, Demonstrated ko1 understanding of instructions, ko1
--- NOTE | 2023-03-20 09:17 | EDPHYS ---
Physician Documentation [facility] Name: Lorenza Arrington Age: 52 yrs Sex: Female : 1970 Arrival Date: 03/20/2023 Time: 06:33 Bed 13 Private MD: ED Physician Norm Esposito HPI: 03/20 08:30 This 52 yrs old Female presents to ER via Wheelchair with complaints of ms3 Shortness Of Breath, Chest Pain, Arm Pain. 08:30 52-year-old female with past medical history of congestive heart failure, hypertension, ms3 brain aneurysm presents to the emergency department for chest pain that began on Monday and became worse last night. Patient states the pain has been constant. Patient endorses shortness of breath. Patient denies nausea, vomiting, fevers, chills.. Historical: - Allergies: 06:52 No Known Allergies; pf1 - PMHx: 06:52 CHF; HTN; brain aneurysm; pf1 - PSHx: 06:52 Cholecystectomy; aneurysm repair; pf1 - Immunization history:: Adult Immunizations up to date, Client reports having NOT received the Covid vaccine. Last tetanus immunization: < 10 years ago. - Social history:: Smoking status: Patient/guardian denies using tobacco, Stopped _ months ago 7 Patient uses Patient/guardian denies using alcohol, street drugs. ROS: 08:30 Constitutional: Negative for fever, and chills. Neck: Negative for injury, pain, and ms3 swelling, Respiratory: Negative for shortness of breath, cough, wheezing, and pleuritic chest pain, 08:30 MS/Extremity: Negative for injury and deformity, Skin: Negative for injury, rash, and discoloration, 08:30 Cardiovascular: Positive for chest pain, 08:30 All other systems are negative, Exam: 08:30 Constitutional: This is a well developed, well nourished patient who is awake, alert, ms3 and in no acute distress. Head/Face: Normocephalic, atraumatic. Neck: Trachea midline, no cervical lymphadenopathy. Supple, full range of motion without nuchal rigidity, or vertebral point tenderness. No Meningismus. Chest/axilla: Normal chest wall appearance and motion. Nontender with no deformity. Cardiovascular: Regular rate and rhythm with a normal S1 and S2. No gallops, murmurs, or rubs. Normal PMI, no JVD. No pulse deficits. Respiratory: Lungs have equal breath sounds bilaterally, clear to auscultation and percussion. No rales, rhonchi or wheezes noted. No increased work of breathing, no retractions or nasal flaring. Abdomen/GI: Soft, non-tender, with normal bowel sounds. No distension or tympany. No guarding or rebound. No evidence of tenderness throughout. Skin: Warm, dry with normal turgor. Normal color with no rashes, no lesions, and no evidence of cellulitis. MS/ Extremity: Pulses equal, no cyanosis. Neurovascular intact. Full, normal range of motion. 08:35 ECG was reviewed by the Attending Physician. ms3 Vital Signs: 06:49 BP 189 / 121; Pulse 94; Resp 20; Temp 100.3; Pulse Ox 99% on R/A; Weight 74.84 kg; pf1 Height 5 ft. 0 in. ; Pain 9/10; 07:06 BP 188 / 106; Pulse 98; Resp 25; Pulse Ox 99% ; ko1 07:43 BP 188 / 128; Pulse 99; Resp 18; Pulse Ox 97% ; ko1 07:59 BP 175 / 108; Pulse 89; Resp 18; Pulse Ox 97% ; ko1 08:07 BP 174 / 114; Pulse 98; Resp 24; Pulse Ox 99% ; ko1 08:48 BP 156 / 101; Pulse 85; Resp 22; Pulse Ox 98% ; ko1 09:07 BP 147 / 89; Pulse 84; Resp 18; Pulse Ox 97% ; ko1 10:27 BP 151 / 92; Pulse 94; Resp 16; Pulse Ox 96% ; ko1 06:49 Body Mass Index 32.22 (74.84 kg, 152.4 cm) pf1 06:49 Pain Scale: Adult pf1 MDM: 07:05 Patient medically screened. ms3 08:30 Differential diagnosis: CHF exacerbation, Chronic Obstructive Pulmonary Disease ms3 Myocardial Infarction pneumonia, Pneumothorax pulmonary edema. 09:17 Data reviewed: vital signs, nurses notes, lab test result(s), EKG, radiologic studies, ms3 and as a result, I will admit patient. Consideration of Admission/Observation Patient was admitted/placed on observation. Management of patient was discussed with the following: Hospitalist: Dr. Nugent. I considered the following discharge prescriptions or medication management in the emergency department Medications were administered in the Emergency Department. See MAR. Independent interpretation of the following test(s) in the Emergency Department EKG: See my EKG interpretation above X-Ray: My interpretation is Chest x-ray image reviewed by me does not reveal pneumonia, pneumothorax, pulmonary edema. Counseling: I had a detailed discussion with the patient and/or guardian regarding the historical points, exam findings, and any diagnostic results supporting the discharge/admit diagnosis, lab results, radiology results, the need for outpatient follow up, to return to the emergency department if symptoms worsen or persist or if there are any questions or concerns that arise at home. ED course: Discussed observation with patient. She understands agrees to plan. All questions were answered. Case was discussed with Dr. Nugent and Dr. Guzmán. Dr. Guzmán recommended observation.. 03/20 07:05 Order name: Basic Metabolic Panel; Complete Time: 08:29 ms3 03/20 07:05 Order name: CBC with Diff; Complete Time: 08:29 ms3 03/20 07:05 Order name: D-Dimer; Complete Time: 08:29 ms3 03/20 07:05 Order name: Magnesium; Complete Time: 08:29 ms3 03/20 07:05 Order name: NT PRO-BNP; Complete Time: 08:29 ms3 03/20 07:05 Order name: Troponin HS; Complete Time: 08:29 ms3 03/20 07:05 Order name: Flu; Complete Time: 08:29 ms3 03/20 07:05 Order name: SARS RAPID; Complete Time: 08:29 ms3 03/20 07:05 Order name: XRAY Chest (1 view); Complete Time: 08:29 ms3 03/20 07:05 Order name: EKG; Complete Time: 07:06 ms3 03/20 07:05 Order name: Cardiac monitoring; Complete Time: 07:10 ms3 03/20 07:05 Order name: EKG - Nurse/Tech; Complete Time: 07:10 ms3 03/20 07:05 Order name: IV Saline Lock; Complete Time: 07:10 ms3 03/20 07:05 Order name: Labs collected and sent; Complete Time: 07:10 ms3 03/20 07:05 Order name: O2 Per Protocol; Complete Time: 07:10 ms3 03/20 07:05 Order name: O2 Sat Monitoring; Complete Time: 07:10 ms3 EC:35 Rate is 95 beats/min. Rhythm is regular. QRS [place] is Normal. Clinical impression: NSR ms3 w/ Non-specific ST/T Changes. Interpreted by me. Reviewed by me. Administered Medications: 07:56 Drug: Labetalol IV 10 mg IV at calculated rate once Route: IV; Rate: calculated rate; ko1 Site: right wrist; 08:37 Drug: morphine IVP or IV 4 mg IVP once over 4 mins Route: IVP; Infused Over: 4 mins; ko1 Site: right wrist; 09:24 Drug: Aspirin PO Chewable Tablet 324 mg PO once; 81 mg tablets x 4 Route: PO; ko1 Disposition Summary: 03/20/23 09:17 Hospitalization Ordered Notes: Hospitalization Status: Observation ms3 Provider: Jozef Nugent ms3 Location: Telemetry/MedSurg (observation) ms3 Condition: Stable ms3 Problem: new ms3 Symptoms: are unchanged ms3 Bed/Room Type: Standard ms3 Room Assignment: 206(03/20/23 12:01) bd Diagnosis - Chest pain, unspecified ms3 - Heart failure, unspecified ms3 Forms: - Medication Reconciliation Form ms3 - SBAR form ms3 - Leadership Thank You Letter ms3 Signatures: Dispatcher [employer] Nadiya Fontaine Marcus, DO DO ms3 Margaret Campos RN RN ko1 Temitope Nath RN RN pf1 Corrections: (The following items were deleted from the chart) 12:01 09:17 ms3 bd
[2023-03-20] MEDS ORDERED: ASPIRIN 81 MG CHEWABLE TABLET ONE (09:42)
--- NOTE | 2023-03-20 09:58 | P.HP ---
Certification for Inpatient Patient admitted to: Observation With expected LOS: <2 Midnights Patient will require the following post-hospital care: None Practitioner: I am a practitioner with admitting privileges, knowledge of patient current condition, hospital course, and medical plan of care. Services: Services provided to patient in accordance with Admission requirements found in Title 42 Section 412.3 of the Code of Federal Regulations Patient History Date of Service: 03/20/23 Reason for admission: Chest pain History of Present Illness: 52-year-old female with history of CHFunknown EF, hypertension presents to the emergency department chief complaint of chest pain. She reports intermittent pressure like chest pain that started on Monday the with associated shortness of breath and nausea. She has not been on any medications at home for her hypertension or CHF since 2020 as she has not had a primary care doctor. She reports last stress test was in 2020 and she has never had a heart catheterization, she is unsure of what her ejection fraction was previously on her echocardiogram but her in class special education teacher said it was okay and that is why she stopped taking her medications. She was evaluated in the emergency department her EKG was without STEMI criteria, initial high sensitive troponin was negative BNP 521 white blood cell count 13.5 hemoglobin 11.8 medic at 35.7 chest x-ray is negative for acute findings. ED provider wishes to admit under observation for ACS rule out. - Past Medical/Surgical History -: CHFunknown EF -: Hypertension -: Cholecystectomy -: Brain aneurysm repair Psychosocial/ Personal History: Lives at home with sister, works in manual labor - Family History Family History: Reviewed- Non-Contributory - Social History Smoking Status: Former smoker Alcohol use: No CD- Drugs: No Caffeine use: Yes Place of Residence: Home Review of Systems 10-point ROS is otherwise unremarkable Respiratory: Shortness of Breath Cardiovascular: Chest Pain Gastrointestinal: Nausea Physical Examination - Physical Exam General: Alert, In no apparent distress, Oriented x3 HEENT: Atraumatic Neck: Supple Respiratory: Clear to auscultation bilaterally, Normal air movement Cardiovascular: Regular rate/rhythm, Normal S1 S2 Gastrointestinal: Normal bowel sounds, No tenderness Musculoskeletal: No tenderness Integumentary: No rashes Neurological: Normal speech, Normal affect - Studies Laboratory Data (last 24 hrs) 03/20/23 03/20/23 07:12 07:12 WBC 13.50 H Hgb 11.8 L Hct 35.7 L Plt Count 324 Sodium 137 Potassium 4.0 BUN 11 Creatinine 0.85 Glucose 116 H Magnesium 2.1 Microbiology Data (last 24 hrs): 03/20/23 07:12 Nasopharnyx Influenza Type A Antigen Screen - Final 03/20/23 07:12 Nasopharnyx Influenza Type B Antigen Screen - Final Assessment and Plan - Plan Assessment: Chest pain rule out ACS Hypertensive urgency with underlying primary hypertension/noncompliance History of CHFunknown EF Plan: Chest pain rule out ACS Hypertensive urgency with underlying primary hypertension/noncompliance Trend troponins, monitor on telemetry, cardiology consult Aspirin, statin, beta-kodi ordered, start metoprolol 25 mg p.o. twice daily, likely will need titrated up/additional agents Blood pressure improved with IV labetalol in ED Noncompliant with medications since 2020, unsure what medication she was on at that time Last tress test 2020, has never had heart catheterization History of CHFunknown EF Obtain echocardiogram, continue as above, does not appear overloaded at this time. DVT PPX: Lovenox Code status: Full Discharge Plan: Home Plan to discharge in: 24 Hours - Advance Directives Does patient have a Living Will: No Does patient have a Durable POA for Healthcare: No - Code Status/Comfort Care Code Status Assessed: Yes (Full code) Critical Care: No Time Spent Managing Pts Care (In Minutes): 55
[2023-03-20] MEDS ORDERED: LABETALOL 20 MG/4ML SYRINGE IV PRN (10:16)
[2023-03-20] MEDS: ACETAMINOPHEN 500 MG TAB PO PRN ×2 (12:44→16:33)
[2023-03-20] MEDS ORDERED: ACETAMINOPHEN 500 MG TAB ONE (13:00)
[2023-03-20] MEDS: MORPHINE 2 MG/ML SYR IV PRN ×2 (13:16→20:00)
[2023-03-20 13:20] VITALS: BMI 32.5
[2023-03-20] MEDS: METOPROLOL TAR 25 MG TAB PO SCH (17:20)
[2023-03-20] MEDS ORDERED: PROMETHAZINE 25 MG TABLET PO ONE (19:38)
[2023-03-20] MEDS: ATORVASTATIN 40 MG TAB PO SCH (20:00)
[2023-03-21] MEDS: ACETAMINOPHEN 500 MG TAB PO PRN ×5 (00:12→21:40)
[2023-03-21 03:57] LABS: Absolute Lymphocytes (CBC) 1.3 K/uL (0.7-4.9); Hematocrit 35.9 % (36.0-45.0); Lymphocytes % 7.7 % (15.3-44.8); MCV 83.8 fL (80-100); MPV 7.9 fL (7.6-11.3); Platelets 314 thou/uL (152-406); RBC Red Blood Cell Count 4.28 M/uL (3.86-4.86)
[2023-03-21] MEDS: MORPHINE 2 MG/ML SYR IV PRN (04:32)
[2023-03-21 04:38] LABS: Potassium 3.5 mEq/L (3.5-5.1)
[2023-03-21 04:39] LABS: Thyroid Stimulating Hormone 0.373 uIU/mL (0.358-3.740)
[2023-03-21 05:29] LABS: Blood Morphology Comment NOT SEEN (NOT SEEN); Platelet Estimate ADEQ
[2023-03-21] MEDS: METOPROLOL TAR 25 MG TAB PO SCH ×2 (05:33→17:32)
[2023-03-21] MEDS ORDERED: POTASSIUM CL SA 10 MEQ TAB PO ONE (06:00)
--- NOTE | 2023-03-21 07:02 | ECHO ---
HEIGHT: 5 ft 0 in WEIGHT: 167 lb 0 oz DATE OF STUDY: 03/20/[address]: Norman Nuñez NP 2-DIMENSIONAL: YES M.MODE: YES DOPPLER: YES COLOR FLOW: YES TDS: PORTABLE: YES DEFINITY: BUBBLE STUDY: DIAGNOSIS: CHEST PAIN/ HISTORY OF CONGESTIVE HEART FAILURE CARDIAC HISTORY: CATHERIZATION: SURGERY: PROSTHETIC VALVE: PACEMAKER: MEASUREMENTS (cm) DIASTOLIC (NORMALS) SYSTOLIC (NORMALS) IVSd 0.9 (0.6-1.2) LA Diam 3.7 (1.9-4.0) LVEF 63% LVIDd 3.7 (3.5-5.7) LVIDs 2.5 (2.0-3.5) %FS 33% LVPWd 1.2 (0.6-1.2) Ao Diam 2.9 (2.0-3.7) 2 DIMENSIONAL ASSESSMENT: RIGHT ATRIUM: NORMAL LEFT ATRIUM: MILD DILATED RIGHT VENTRICLE: NORMAL SIZE AND FUNCTION LEFT VENTRICLE: NORMAL EJECTION FRACTION 55-60% TRICUSPID VALVE: NORMAL MITRAL VALVE: NORMAL PULMONIC VALVE: NORMAL AORTIC VALVE: NORMAL PERICARDIAL EFFUSION: NONE AORTIC ROOT: NORMAL LEFT VENTRICULAR WALL MOTION: NORMAL DOPPLER/COLOR FLOW: COMMENTS: 1. MILDLY DILATED LEFT ATRIUM 2. NORMAL LEFT VENTRICULAR EJECTION FRACTION 55-60% TECHNOLOGIST: TERRANCE JESUS
[2023-03-21] MEDS: ASPIRIN EC 81 MG TAB PO SCH (09:26)
[2023-03-21] MEDS: AMLODIPINE 10 MG TAB PO SCH (09:26)
[2023-03-21] MEDS: ENOXAPARIN 40 MG/0.4 ML SQ SCH (09:26)
[2023-03-21] MEDS ORDERED: HYDROCODONE/APAP 5/325 MG TAB PO ONE (13:25)
--- NOTE | 2023-03-21 16:28 | RAD REPORT ---
EXAM DESCRIPTION: CT - Head Brain Wo Cont - 03/21/2023 2:03 pm CLINICAL HISTORY: Headache, severe hypertension COMPARISON: No comparisons TECHNIQUE: Noncontrast head CT images ad were obtained without IV contrast. Multiplanar reformats we re generated and reviewed. All CT scans are performed using dose optimization technique as appropriate and may include automated exposure control or mA/KV adjustment according to patient size. FINDINGS: Sequelae of left temporal craniotomy and MCA aneurysm clipping. Adjacent small region of l eft basal frontal encephalomalacia. No intracranial hemorrhage, mass, or edema. Midline structures are unremarkable. Normal ventricular caliber for age. Left anterior periventricular and deep white matter hypoattenuation, and other scattered minimal area s of white matter hypoattenuation, favored to relate to sequelae of remote ischemia. Santana-white matte r differentiation is otherwise preserved, without evidence of acute infarct. No abnormal extra-axial fluid collections. Mastoid air cells and visualized portions of the paranasal sinuses are clear. No acute bony findings. IMPRESSION: No evidence of an acute intracranial process. Chronic findings as above.
--- NOTE | 2023-03-21 17:29 | P.DS ---
Admission Date: 03/20/23 Discharge Date: 03/21/23 Disposition: ROUTINE DISCHARGE Discharge Condition: FAIR Reason for Admission: Chest pain - Problems (1) Chest pain Current Visit: Yes Status: Acute (2) Hypertension Current Visit: Yes Status: Acute (3) Chronic diastolic heart failure Current Visit: Yes Status: Acute Brief History of Present Illness: 52-year-old female with history of CHFunknown EF, hypertension presented to the emergency department chief complaint of chest pain. She reports intermittent pressure like chest pain that started on Monday the with associated shortness of breath and nausea. She has not been on any medications at home for her hypertension or CHF since 2020 as she has not had a primary care doctor. She reported last stress test was in 2020 and she has never had a heart catheterization. Her EKG in the ED showed no ischemic changes. Initial high sensitive troponin was negative, BNP 521 white blood cell count 13.5 hemoglobin 11.8 medic at 35.7, chest x-ray was negative for acute findings. Blood pressure noted to be elevated. Patient was hospitalized for further evaluation. Hospital Course: Patient placed under observation on the medical floor. Troponin trended negative. Patient was complaining of general malaise and headache. Blood pressure was elevated. Her blood pressure was managed with amlodipine and metoprolol. Patient was also placed on aspirin. She was seen and evaluated by cardiology Dr. Guzmán. Echocardiogram done was abnormal, showed normal EF, no report of wall motion abnormality. She was complaining of headache which was evaluated with a head CT given her initial high BP. CT head showed no acute disease. Patient deemed stable for discharge per cardiology. She is discharged with metoprolol and amlodipine and aspirin. Vital Signs/Physical Exam: Temp Pulse Resp BP Pulse Ox 98.1 F 76 19 151/77 H 98 03/21/23 16:00 03/21/23 16:00 03/21/23 16:00 03/21/23 16:00 03/21/23 16:00 Laboratory Data at Discharge: WBC 16.70 thou/uL (4.3-10.9) H 03/21/23 02:24 Hgb 11.6 g/dL (12.0-15.0) L 03/21/23 02:24 Hct 35.9 % (36.0-45.0) L 03/21/23 02:24 Plt Count 314 thou/uL (152-406) 03/21/23 02:24 Sodium 136 mEq/L (136-145) 03/21/23 02:24 Potassium 3.5 mEq/L (3.5-5.1) 03/21/23 02:24 BUN 9 mg/dL (7-18) 03/21/23 02:24 Creatinine 0.78 mg/dL (0.55-1.02) 03/21/23 02:24 Glucose 137 mg/dL (74-106) H 03/21/23 02:24 Magnesium 2.1 mg/dL (1.6-2.4) 03/20/23 07:12 Triglycerides 50 mg/dL (<150) 03/21/23 02:24 Cholesterol 174 mg/dL (<200) 03/21/23 02:24 HDL Cholesterol 82 mg/dL (40-60) H 03/21/23 02:24 Cholesterol/HDL Ratio 2.12 03/21/23 02:24 Home Medications: Amlodipine [Norvasc*] 10 mg PO DAILY #30 tab 03/21/23 Aspirin [Aspirin EC] 81 mg PO DAILY #30 tab 03/21/23 Atorvastatin Calcium [Lipitor] 20 mg PO BEDTIME #30 tab 03/21/23 Metoprolol Tartrate [Lopressor*] 25 mg PO BID 6AM 6PM #60 tab 03/21/23 New Medications: Aspirin [Aspirin EC] 81 mg PO DAILY #30 tab Atorvastatin Calcium [Lipitor] 20 mg PO BEDTIME #30 tab Metoprolol Tartrate [Lopressor*] 25 mg PO BID 6AM 6PM #60 tab Amlodipine [Norvasc*] 10 mg PO DAILY #30 tab Diet: AHA Activity: Ad ba Followup: NONE,NONE [Primary Care Provider] - 1-2 Weeks Chirag Guzmán MD [ACTIVE - CAN ADMIT] - (Within 2 to 4 weeks) Time spent managing pt's care (in minutes): 27
[2023-03-21] MEDS: ATORVASTATIN 40 MG TAB PO SCH (20:25)
[2023-03-21 21:47] VITALS: O2SAT 96
[2023-03-22 02:57] LABS: Absolute Lymphocytes (CBC) 2.1 K/uL (0.7-4.9); Lymphocytes % 13.8 % (15.3-44.8); MCV 83.6 fL (80-100); MPV 8.1 fL (7.6-11.3); Platelets 294 thou/uL (152-406); RBC Red Blood Cell Count 4.19 M/uL (3.86-4.86)
[2023-03-22 03:10] LABS: Potassium 3.9 mEq/L (3.5-5.1)
[2023-03-22] MEDS: METOPROLOL TAR 25 MG TAB PO SCH (04:54)
[2023-03-22] MEDS: ACETAMINOPHEN 500 MG TAB PO PRN (04:54)
[2023-03-22] MEDS ORDERED: POTASSIUM CL SA 10 MEQ TAB PO ONE (06:00)
[2023-03-22] MEDS: ASPIRIN EC 81 MG TAB PO SCH (08:26)
[2023-03-22] MEDS: MORPHINE 2 MG/ML SYR IV PRN (08:26)
[2023-03-22] MEDS: AMLODIPINE 10 MG TAB PO SCH (08:26)
[2023-03-22] MEDS: ENOXAPARIN 40 MG/0.4 ML SQ SCH (08:26)
[2023-03-22 11:58] VITALS: BP 137/72; TEMP 97.7
--- NOTE | 2023-03-22 17:31 | EKG ---
Test Date: 2023-03-20 Test Time: 06:45:40 Communications Technologist: KENNETH MEASUREMENT RESULTS: Intervals: Rate: 95 AK: 128 QRSD: 94 QT: 390 QTc: 490 [place]: P: 62 AK: 128 QRS: 67 T: 13 INTERPRETIVE STATEMENTS: Normal sinus rhythm Nonspecific ST abnormality Prolonged QT Abnormal ECG No previous ECG available for comparison Electronically Signed On 03-22-23 17:23:49 INSPECTOR MACHINE CUT GLASS by Chirag Guzmán
== END 2023-03-22 13:25 | disposition home or self-care (01) ==
LOC: ER 06:33 → ERHOLD 09:48 → 2ND 12:07
PROVIDERS: ADMIT Hospitalist; ATTEND Internal Medicine
DX: R07.9 Chest pain, unspecified (principal); I16.0 Hypertensive urgency; I50.32 Chronic diastolic (congestive) heart failure; I10 Essential (primary) hypertension; R06.02 Shortness of breath; R11.0 Nausea; R51.9 Headache, unspecified; Z91.148 Patient's other noncompliance with medication regimen for other reason; Z11.52 Encounter for screening for COVID-19
CPT/HCPCS: 93005; 93306; 85025 ×3; 80048 ×3; 36415 ×2; 83735; 80061; 85379; 84443; 84484 ×3; 84439; 83880; 87804 ×2; 70450; 71045; 96375; 96374; 99285; 87811; J2270 ×2; G0378